=== PATIENT | male | born 1980 | race Caucasian/White ===

== ENCOUNTER 2022-12-16 18:55 | Emergency (ER) | payer OTHER, SELFPAY ==
[2022-12-16 19:01] VITALS: BP 166/88; PULSE 94; RESP 18; TEMP 36.6; O2SAT 98; BMI 30.8
--- NOTE | 2022-12-16 19:14 | PC.NURSE ---
Pain to right shoulder radiating down right arm, denies injury, no redness, selling or bruising noted.
--- NOTE | 2022-12-16 19:24 | XR_ITS ---
The [address] [address] Patient Name: DORIS VANCE MRN: [id number] date: 1980 Sex: M Assigned Patient Location: ER Current Patient Location: ER Accession/Order Number: [id number] Exam Date: 12/16/2022 19:35 Report Date: 12/16/2022 19:55 At the request of: BRIANA BLOCK Procedure: XR cervical spine 2-3V EXAM: XR cervical spine 2-3V HISTORY: right sided neck pain COMPARISON: 05/08/2019 TECHNIQUE: AP and lateral views of the cervical spine were obtained. FINDINGS: There is interval straightening and very slight reversal of the normal lordotic curvature. The vertebral bodies are aligned and the vertebral body heights are intact. There is narrowing of the C3-C4 on C5-C6 disc spaces accompanied by tiny osteophytes. The disc spaces are otherwise intact. No significant abnormality is seen in the vertebral bodies. Minimal degenerative changes are seen in the facets without evidence of a fracture or subluxation. The posterior elements are intact. The airway appears unremarkable. The patient is noted to be essentially edentulous. XR/XR cervical spine 2-3V IMPRESSION: There is interval development of straightening and slight reversal of the normal lordotic curvature in the cervical spine. Some degenerative changes are present, without evidence of an acute fracture. Except for the straightening, the overall appearance of the cervical spine is unchanged. Electronically authenticated by: DRE ANSARI Date: 12/16/2022 19:55
--- NOTE | 2022-12-16 19:24 | XR_ITS ---
The [address] [address] Patient Name: DORIS VANCE MRN: [id number] date: 1980 Sex: M Assigned Patient Location: ER Current Patient Location: ER Accession/Order Number: [id number] Exam Date: 12/16/2022 19:35 Report Date: 12/16/2022 19:50 At the request of: BRIANA BLOCK Procedure: XR shoulder RT min 2V EXAM: XR shoulder RT min 2V HISTORY: pain right shoulder COMPARISON: None. TECHNIQUE: 3 views of the right shoulder were obtained. FINDINGS: There is no evidence of an acute fracture or dislocation. The joint spaces are intact. The acromiohumeral interval is intact. No abnormal soft tissue calcifications are present. XR/XR shoulder RT min 2V IMPRESSION: No acute fracture, dislocation or significant degenerative change in the right shoulder. Direct comparison with a previous study may be helpful in determining the chronicity of these findings. Electronically authenticated by: DRE ANSARI Date: 12/16/2022 19:50
[2022-12-16 19:40] LABS: Basophils Percent Auto 0.3 % (0.2-2.0); Eosinophils Percent Auto 0.3 % (0.9-7.0); Hematocrit 50.2 % (42.0-54.0); Hemoglobin 17.4 g/dL (14.0-18.0); Immature Granulocytes Abs Auto 0.05 10^3/uL (0.00-0.03); Immature Granulocytes Pct Auto 0.4 % (0.0-0.5); Lymphocytes Absolute Auto 2.5 10^3/uL (1.2-3.8); Lymphocytes Percent Auto 21.5 % (20.5-60.0); Mean Corpuscular HGB Conc 34.7 g/dL (29.9-35.2); Mean Corpuscular Hemoglobin 30.7 pg (25.9-34.0); Mean Corpuscular Volume 88.5 fL (80.0-94.0); Mean Platelet Volume 10.5 fL (9.5-13.5); Monocytes Percent Auto 8.8 % (1.7-12.0); Neutrophils Absolute Auto 8.1 10^3/uL (1.4-6.5); Neutrophils Percent Auto 68.7 % (43.0-75.0); Platelet Count 206 10^3/uL (150-450); Red Blood Count 5.67 10^6/uL (4.70-6.10); Red Cell Distribution Width 12.5 % (11.0-15.0); White Blood Count 11.8 10^3/uL (4.0-11.0)
[2022-12-16 19:43] LABS: Erythrocyte Sedimentation Rate 4 mm/hr (<=15)
--- NOTE | 2022-12-16 19:47 | ED.UPPEXIN1 ---
HPI - Extremity Injury (Upper) General Chief Complaint: Extremity Injury, Upper Stated Complaint: Right Shoulder and Arm Pain Time Seen by Provider: 12/16/22 19:02 Source: patient Mode of arrival: walk-in History of Present Illness HPI narrative: patient is a 42-year-old male presents to the Emergency Room with concerns of pain in his right shoulder and right side of his neck. Patient denies injury, recently started new employment at [employer]. Denies any heavy lifting pushing or pulling. States he developed pain in the right side of his neck going into his right shoulder and right arm. He contacted his family doctor and was placed on prednisone yesterday, he has taken two doses and noted some improvement in the neck pain but pain is still severe in the right shoulder and does radiate down into the right thumb.He denies any pain in his chest or back. He denies any nausea or vomiting. Patient notes he did not sleep well. Symptoms started two days ago in the morning without trauma. He had previous pain management injections with [facility] over a year ago with good results. Patient takes gabapentin 300 mg three times a day but admits he has not taken it three times a day on a regular basis. He takes tizanidine at night for sleep given his chronic neck symptoms and is on a daily anti-inflammatory. Patient notes right shoulder pain is worse based on position but pain is always present. He is diabetic and has noted some warmth. Patient denies symptoms in his left sshoulder or other joints at this time. Hand dominance: right Place: Reports home Severity: severe Relieving factors: Reports none and medication (some improvement with prednisone with neck pain) Exacerbating factors: Reports movement of extremity Related Data Home Medications Medication Instructions Recorded Confirmed alprazolam 0.25 mg tablet 0.125 mg PO TID PRN anxiety 12/16/22 12/16/22 citalopram 40 mg tablet 40 mg PO DAILY 12/16/22 12/16/22 empagliflozin 10 mg tablet 10 mg PO DAILY 12/16/22 12/16/22 (Jardiance) gabapentin 600 mg tablet 600 mg PO Q12H 12/16/22 12/16/22 lamotrigine 100 mg tablet 200 mg PO DAILY 12/16/22 12/16/22 ondansetron 4 mg disintegrating mg 12/16/22 tablet rizatriptan 10 mg tablet 10 mg PO Q2H PRN migraine headache 12/16/22 12/16/22 tizanidine 4 mg tablet 4 mg PO Q12H 12/16/22 12/16/22 Allergies Allergy/AdvReac Type Severity Reaction Status Date / Time No Known Drug Allergies Allergy Verified 12/16/22 19:08 Review of Systems ROS Constitutional Reports: fever; Denies: chills Eyes Denies: change in vision Ears, nose, mouth, and throat Denies: throat pain or neck pain Cardiovascular Denies: chest pain or palpitations Respiratory Denies: shortness of breath or cough Gastrointestinal Denies: abdominal pain, nausea or vomiting Genitourinary Denies: painful urination Musculoskeletal Reports: neck pain and extremity pain (right shoulder) Integumentary/Breast Denies: rash Neurological Reports: numbness in extremities (occ. paresthesias right arm c6/ c5 distribution pain is C5 distribution); Denies: headache Psychiatric Denies: anxiety Endocrine Denies: excessive urination Hematologic/Lymphatic Denies: easy bruising Exam Narrative Exam Narrative: Nurses notes and vital signs reviewed and patient is not hypoxic. General: The patient appears uncomfortable, standing holding his right arm. Patient intermittently moving the right arm and states pain is bad holding it still and slightly changing position and moving it can offer some relief. Skin: Warm, dry, no pallor noted.no evidence of zoster-like rash. Head: Normocephalic, atraumatic Neck: Supple, trachea mid-line, no midline tenderness, no lymphadenopathy, no meningeal signs. mild tenderness right trapezium and right medial scapula. Patient notes the symptoms are improved with oral steroids. Eye: Pupils are equal, round and reactive to light, EOMI Ears, Nose, Mouth, and Throat: TM are clear, normal light reflex, oral mucosa is moist, no posterior oropharynx erythema or hypertrophy, uvula is mid-line Cardiovascular: Regular Rate and Rhythm Respiratory: Patient is in no distress, no accessory muscle use, lungs are clear to auscultation, no wheezing, rales or rhonchi. Chest Wall: no tenderness Back: non-tender, no CVA tenderness Musculoskeletal: patient has slight warmth to the right shoulder,mild ac joint pain. no erythema. Facial flushing likely from recent steroid prescription. Patient has near full range of motion despite pain past ninety degrees with abduction and forward flexion. Pain appears radiated over the deltoid into deltoid insertion folllowing a C5 dermatome. Does have positive increased pain with M?ni?re's in [place]. He has pain with rotator cuff stressing on empty can test. Patient notes pain with stressing his mildly increased from the pain he experiences at baseline. Internal rotation is to L4., Shoulders unremarkable. Patient has no evidence of joint swelling to the elbow wrist or hand. Full painless active and passive range of motion of the elbow wrist and hand appreciated. [employer] strength is full and symmetric. Wrist extension is five over five along with wrist flexion five over five. Biceps and triceps strength is also five over five. painless range of motion of the hips knees and ankles appreciated. GI: Normal bowel sounds, no tenderness to palpation, no masses appreciated. No rebound, guarding, or rigidity noted. Neurological: A&O x4, patient notes intermittent paresthesia right upper extremity C5-C6 distribution, currently expressing pain. Reflexes 2+ symmetric biceps, tricepps and brachial radialis. Negative clonus, negative Shaheed sign. Psychiatric: Cooperative Constitutional Vital Signs, click to edit/add: Last Vital Signs Temp 97.9 F 12/16/22 19:01 Pulse 67 12/16/22 20:10 Resp 18 12/16/22 20:10 BP 136/76 12/16/22 20:10 Pulse Ox 97 12/16/22 20:10 O2 Del Method Room Air 12/16/22 19:01 Course Vital Signs Vital signs: Vital Signs Temperature 97.9 F 12/16/22 19:01 Pulse Rate 94 H 12/16/22 19:01 Respiratory Rate 18 12/16/22 19:01 Blood Pressure 166/88 H 12/16/22 19:01 Pulse Oximetry 98 12/16/22 19:01 Oxygen Delivery Method Room Air 12/16/22 19:01 Temperature 97.9 F 12/16/22 19:01 Pulse Rate 67 12/16/22 20:10 Respiratory Rate 18 12/16/22 20:10 Blood Pressure 136/76 12/16/22 20:10 Pulse Oximetry 97 12/16/22 20:10 Oxygen Delivery Method Room Air 12/16/22 19:01 MDM - Extremity Injury (Upper) MDM Narrative Medical decision making narrative: patient appears to have acute exacerbation of right cervical radiculopathy. He denies any aggressive use of his shoulder but did recently start new employment. Patient has significant pain constant and a C5 almost C6 dermatome. There is no focal weakness no reflex abnormality. And he is starting to some improvement in his neck pain with oral prednisone. We discussed watching his diet as he is diabetic and the steroids may raise his blood sugar. Patient will start taking his gabapentin three times a day as prescribed 300 mg. We discussed contacting pain management on Monday from whom he is established with discussed possible procedures. X-rays were performed today after discussion with the patient that he would not like to delay any other outpatient follow-up needs encase additional imaging is warranted later on. X-rays of the right shoulder and cervical spine were discussed at bedside. Given slight warmth and patient's history of diabetes sedimentation rate and CRP are performed, within normal limits suspect slight elevation of white blood cell count from patient's pain and recent steroid use, patient denies any IV drug abuse fevers or chills. We discussed pain expectations with IM Toradol, Norflex and morphine given here today. Recommend patient continue his current medications focused on ice and activity modifications with gentle neck stretching pending follow-up outpatient we did discuss patient's severe pain. Diabetic by infectious process appears less likely. Laboratory studies performed with normaal sedimentation rate and CRP and autoimmune process not suspected. His clinical picture strongly suggestive of cervical radiculopathy given exam findings.patient spouse present at bedside, patient notes continued pain despite IM medications. He is requesting a IM steroid we discussed risks and benefits with his sugars, he did not take his steroid yet today and has been taking them before bed but has no difficulty sleeping. We discussed watching his diet and his x-rays, laboratory studies and need for follow-up are discussed. Patient noted that he was thankful for evaluation and tx. The patient is to followup with Dr. Johansen/Dr. Quinonez in next 2-3 days or to return to the emergency department should any of the signs or symptoms worsen or new symptoms develop. Patient had questions answered. The patient agrees with the following Diagnosis and Treatment plan and the patient will be discharged home. Lab Data Labs: Lab Results 12/16/22 Range/Units 19:34 WBC 11.8 H (4.0-11.0) 10^3/uL RBC 5.67 (4.70-6.10) 10^6/uL Hgb 17.4 (14.0-18.0) g/dL Hct 50.2 (42.0-54.0) % MCV 88.5 (80.0-94.0) fL MCH 30.7 (25.9-34.0) pg MCHC 34.7 (29.9-35.2) g/dL RDW 12.5 (11.0-15.0) % Plt Count 206 (150-450) 10^3/uL MPV 10.5 (9.5-13.5) fL Neut % (Auto) 68.7 (43.0-75.0) % Lymph % (Auto) 21.5 (20.5-60.0) % [place] % (Auto) 8.8 (1.7-12.0) % Eos % (Auto) 0.3 L (0.9-7.0) % Baso % (Auto) 0.3 (0.2-2.0) % Neut # (Auto) 8.1 H (1.4-6.5) 10^3/uL Lymph # (Auto) 2.5 (1.2-3.8) 10^3/uL [place] # (Auto) 1.0 H (0.3-0.8) 10^3/uL Eos # (Auto) 0.0 (0.0-0.7) 10^3/uL Baso # (Auto) 0.0 (0.0-0.1) 10^3/uL Abs Immat Gran (auto) 0.05 H (0.00-0.03) 10^3/uL Imm/Tot Granulo (auto) 0.4 (0.0-0.5) % ESR 4 (<=15) mm/hr Sodium 137 (136-145) mmol/L Potassium 3.3 L (3.5-5.1) mmol/L Chloride 97 L (98-107) mmol/L Carbon Dioxide 31.8 (21.0-32.0) mmol/L Anion Gap 11.5 BUN 20.0 H (7.0-18.0) mg/dL Creatinine 1.26 (0.70-1.30) mg/dL Est GFR ( Amer) >60 (>=60) Est GFR (Non-Af Amer) >60 (>=60) BUN/Creatinine Ratio 15.9 Glucose 149 H (74-106) mg/dL Calcium 9.3 (8.5-10.1) mg/dL Troponin I High Sens 16.1 (4.0-76.1) pg/mL C-Reactive Protein <1.0 (<=1.0) mg/dL Imaging Data c-spine: Radiologist's impression: Procedure: XR cervical spine 2-3V EXAM: XR cervical spine 2-3V HISTORY: right sided neck pain COMPARISON: 05/08/2019 TECHNIQUE: AP and lateral views of the cervical spine were obtained. FINDINGS: There is interval straightening and very slight reversal of the normal lordotic curvature. The vertebral bodies are aligned and the vertebral body heights are intact. There is narrowing of the C3-C4 on C5-C6 disc spaces accompanied by tiny osteophytes. The disc spaces are otherwise intact. No significant abnormality is seen in the vertebral bodies. Minimal degenerative changes are seen in the facets without evidence of a fracture or subluxation. The posterior elements are intact. The airway appears unremarkable. The patient is noted to be essentially edentulous. IMPRESSION: There is interval development of straightening and slight reversal of the normal lordotic curvature in the cervical spine. Some degenerative changes are present, without evidence of an acute fracture. Except for the straightening, the overall appearance of the cervical spine is unchanged. right shoulder xray: My impression: personally reviewed, no acute fracture, no significant degenerative changes. Radiologist's impression: EXAM: XR shoulder RT min 2V HISTORY: pain right shoulder COMPARISON: None. TECHNIQUE: 3 views of the right shoulder were obtained. FINDINGS: There is no evidence of an acute fracture or dislocation. The joint spaces are intact. The acromiohumeral interval is intact. No abnormal soft tissue calcifications are present. IMPRESSION: No acute fracture, dislocation or significant degenerative change in the right shoulder. Direct comparison with a previous study may be helpful in determining the chronicity of these findings. Electronically authenticated by: DRE ANSARI Date: 12/16/2022 19:50 ECG Data Attestation: I personally reviewed and interpreted this ECG as follows: Interpretation: EKG interpretation: Emergency Department physician interpretation, normal sinus rhythm 76 bpm, no ectopy, no ST segment elevation, normal axis ( border line right axis deviation). Discharge Plan Discharge Chief Complaint: Extremity Injury, Upper Clinical Impression: Cervical radiculopathy, Acute pain of right shoulder Patient Disposition: Home, Self-Care Time of Disposition Decision: 20:09 Condition: Good Mode of Transportation: Private Vehicle Prescriptions / Home Meds: No Action alprazolam 0.25 mg tablet 0.125 mg PO TID PRN (Reason: anxiety) citalopram 40 mg tablet 40 mg PO DAILY Jardiance 10 mg tablet 10 mg PO DAILY Rx Instructions: takes 5 mg daily gabapentin 600 mg tablet 600 mg PO Q12H lamotrigine 100 mg tablet 200 mg PO DAILY rizatriptan 10 mg tablet 10 mg PO Q2H PRN (Reason: migraine headache) ondansetron 4 mg tablet,disintegrating tizanidine 4 mg tablet 4 mg PO Q12H Instructions: Cervical Radiculopathy (ED), Shoulder Pain (ED) Additional Instructions: Gentle stretching. Do not recommend sling, could lead to Frozen shoulder... call pain management to Discuss possible repeat injections, but with pain in Shoulder follow up to Dr. Mijares warranted for further eval. please take current steroid as prescribed by Dr. Johansen with use of ice. Cont current medications. Include potassium rich foods in your diet. Stand Alone Forms: Portal Instructions Referrals: Roni Johansen MD [Primary Care Provider] - 1 week Chadwick Mijares MD [Physician] - As soon as possible ROLANDO QUINONEZ [Physician] - As soon as possible Discharge Date/Time: 12/16/22 20:56
--- NOTE | 2022-12-16 19:50 | ECG_ITS ---
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
[2022-12-16 19:51] LABS: Anion Gap 11.5; BUN Creatinine Ratio 15.9; Calcium 9.3 mg/dL (8.5-10.1); Carbon Dioxide 31.8 mmol/L (21.0-32.0); Chloride 97 mmol/L (98-107); Estimated GFR (African America >60 (>=60); Estimated GFR (Non-African Ame >60 (>=60); Glucose 149 mg/dL (74-106); Potassium 3.3 mmol/L (3.5-5.1); Sodium 137 mmol/L (136-145)
[2022-12-16 19:53] LABS: C Reactive Protein <1.0 mg/dL (<=1.0)
[2022-12-16] MEDS: KETOROLAC TROMETHAMINE 60 MG/2 ML VIAL IM (19:59)
[2022-12-16] MEDS: ORPHENADRINE 60 MG/ 2 ML VIAL IM (20:00)
[2022-12-16] MEDS: MORPHINE SULFATE 4 MG/ML VIAL 6 MG IM (20:00)
[2022-12-16 20:10] VITALS: BP 136/76; PULSE 67; RESP 18; O2SAT 97
[2022-12-16 20:19] LABS: Troponin I High Sensitivity 16.1 pg/mL (4.0-76.1)
[2022-12-16] MEDS: METHYLPREDNISOLONE SOD SUCC PF 125 MG/2 ML VIAL IM (20:42)
== END 2022-12-16 20:56 | disposition home or self-care (01) ==
PROVIDERS: Personal Emergency Response Attendant; Emergency Provider Internal Medicine; PCP Family Medicine
DX: M54.12 Radiculopathy, cervical region (principal); M25.511 Pain in right shoulder; E11.9 Type 2 diabetes mellitus without complications; Z79.899 Other long term (current) drug therapy
CPT/HCPCS: 36415; 72040; 73030; 80048; 84484; 85025; 85652; 86140; 93005; 96372; 99285; J2930

== ENCOUNTER 2023-01-09 08:37 | Outpatient (OUT) | payer OTHER, SELFPAY ==
--- NOTE | 2023-01-09 08:42 | MR_ITS ---
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 FINDINGS: The sensitivity of the study has been decreased due to motion artifact. There is normal physiologic cervical lordosis. The vertebral heights are relatively preserved. The cervicomedullary junction is unremarkable. No definite signal abnormality within the spinal cord is noted, given the limitation of motion artifact. There are mild disc osteophyte complex associated with uncovertebral joint arthrosis from C3 to T1. There is bilateral short pedicles predisposing patient to canal stenosis. Mild right neuroforaminal narrowing and no canal stenosis at the level of C2-C3 is noted. At the level of C3-C4, there is severe right and moderate left neuroforaminal narrowing and mild canal stenosis. At the level of C4-C5, there is superimposed central protrusion with moderate right and mild left neuroforaminal narrowing and moderate canal stenosis. At the level of C5-C6, there is moderate bilateral neuroforaminal narrowing and mild canal stenosis. At the level of C6-C7, there is mild to moderate bilateral neuroforaminal narrowing and mild canal stenosis. Level of C7-T1, there is moderate right neuroforaminal narrowing. No canal stenosis. At the level of T1-T2 there is central and left lateral disc protrusion with mild canal stenosis and no neuroforaminal narrowing. No definite muscular or ligamentous injury is noted. MR/MR cervical spine wo con IMPRESSION: Moderate degenerative changes of the cervical spine in particular at C3-C4. Electronically authenticated by: TIBURCIO MERRITT Date: 01/09/2023 11:02
--- NOTE | 2023-01-09 08:46 | XR_ITS ---
The [address] [address] Patient Name: DORIS VANCE MRN: [id number] date: 1980 Sex: M Assigned Patient Location: MRI Current Patient Location: MRI Accession/Order Number: [id number] Exam Date: 01/09/2023 08:51 Report Date: 01/09/2023 09:24 At the request of: ALFREDO RODRIGUEZ Procedure: XR foreign body eye EXAM: XR foreign body eye HISTORY: Possible foreign body. COMPARISON: None FINDINGS: No radiopaque foreign body is seen. No evidence of an acute fracture, subluxation or bony destruction is seen. XR/XR foreign body eye IMPRESSION: No radiopaque foreign body. Electronically authenticated by: ALBINA LÓPEZ Date: 01/09/2023 09:24
--- OUTSIDE RECORDS SUMMARY | 2023-02-14 18:42 | XMS_ITS | CCD ---
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 Name Role Phone Physician, No Pcp Primary Care Provider Unavaila ble PHYSICIAN, NO PCP Primary Care Unavailable JENNIFER ., DR FUENTES Primary Care Unavailable HOY ., DR FUENTES Admitting Unavailable HOY ., DR FUENTES Attending Unavailable HOY ., DR FUENTES Consulting Unavailable HOY ., DR FUENTES Admitting Unavailable HOY ., DR FUENTES Attending Unavailable HOY ., DR FUENTES Consulting Unavailable HOY ., DR FUENTES Primary Care Unavailable Medications Completed/Discontinued Medications Medication Drug Class(es) Dates Sig (Normalized) Sig (Original) 1 ml ketorolac tromethamine 30 mg/ml injection (1 source) Nonsteroidal Anti-inflammatory Drug, Cyclooxygenase Inhibitor Start: 01-08-2022 End: 01-08-2022 ketorolac (TORADOL) injection 15 mg 2 ml ondansetron 2 mg/ml injection (1 source) Serotonin-3 Receptor Antagonist Start: 01-08-2022 End: 01-08-2022 ondansetron (PF) (ZOFRAN) injection 4 mg 1000 ml sodium chloride 9 mg/ml injection (1 source) Start: 01-08-2022 End: 01-08-2022 sodium chloride 0.9 % bolus 1,000 mL Problems Problem Classification Problem Date Documented Da te Episodic/Chronic Nausea and vomiting (2 sources) Nausea and vomiting; Translations: [Nausea with vomiting, unspecified] Onset: 01-08-2022 Episodic Other gastrointestinal disorders (1 source) Diarrhea; Translations: [Diarrhea, unspecified] Episodic Other gastrointestinal disorders (1 source) Diarrhea, unspecified; Translations: [Diarrhea, unspecified] Onset: 01-08-2022 Episodic Results Test Name Value Interpretation Reference Range Facil ity CBC AUTO DIFFon 07-01-2022 BASO # 0.0 103/ul Normal 0.0-0.1 [facility] Comment on above: Performed By: #### C BC #### [facility] [address] [place] [address] Dr. Tristan Cole Basophils/100 WBC (Bld) 0.7 % Normal 0.2-2.0 [facility] Comment on above: Performed By: #### C BC #### [facility] [address] [place] [address] Dr. Tristan Cole EO # 0.1 103/ul Normal 0.0-0.7 [facility] Comment on above: Performed By: #### C BC #### [facility] [address] [place] [address] Dr. Tristan Cole Eosinophils/100 WBC (Bld) 2.6 % Normal 0.9-7.0 [facility] Comment on above: Performed By: #### C BC #### [facility] [address] [place] [address] Dr. Tristan Cole Erythrocyte distribution wid th (RBC) [Ratio] 12.5 % Normal 11.0-15.0 [facility] Comment on above: Performed By: #### C BC #### [facility] [address] [place] [address] Dr. Tristan Cole Hematocrit (Bld) [Volume fraction] 51.2 % Normal 4 2.0-54.0 [facility] Comment on above: Performed By: #### C BC #### [facility] [address] [place] [address] Dr. Tristan Cole Hemoglobin (Bld) [Mass/Vol] 17.7 g/dL Normal 14.0-18. 0 [facility] Comment on above: Performed By: #### C BC #### [facility] [address] [place] [address] Dr. Tristan Cole IG # 0.02 10e3/ul Normal 0.00-0.03 [facility] Comment on above: Performed By: #### C BC #### [facility] [address] [place] [address] Dr. Tristan Cole IG % 0.4 % Normal 0.0-0.5 The [facility] Comment on above: Performed By: #### C BC #### [facility] [address] [place] [address] Dr. Tristan Cole LYMPH # 1.6 103/ul Normal 1.2-3.8 The [facility] Comment on above: Performed By: #### C BC #### [facility] [address] [place] [address] Dr. Tristan Cole Lymphocytes/100 WBC (Bld) 35.8 % Normal 20.5-60.0 [facility] Comment on above: Performed By: #### C BC #### [facility] [address] [place] [address] Dr. Tristan Cole MANUAL DIFF REQ NO Normal [facility] Comment on above: Performed By: #### C BC #### [facility] [address] [place] [address] Dr. Tristan Cole MCH (RBC) [Entitic mass] 30.4 pg Normal 25.9-34.0 [facility] Comment on above: Performed By: #### C BC #### [facility] [address] [place] [address] Dr. Tristan Cole MCHC (RBC) [Mass/Vol] 34.6 g/dL Normal 29.9-35.2 [facility] Comment on above: Performed By: #### C BC #### [facility] [address] [place] [address] Dr. Tristan Cole MCV (RBC) [Entitic vol] 87.8 fL Normal 80.0-94.0 [facility] Comment on above: Performed By: #### C BC #### [facility] [address] [place] [address] Dr. Tristan Cole MONO # 0.4 103/ul Normal 0.3-0.8 The [facility] Comment on above: Performed By: #### C BC #### [facility] [address] [place] [address] Dr. Tristan Cole Monocytes/100 WBC (Bld) 9.6 % Normal 1.7-12.0 [facility] Comment on above: Performed By: #### C BC #### [facility] [address] [address] [address] Tristan Cole NEUT # 2.3 103/ul Normal 1.4-6.5 The [facility] Comment on above: Performed By: #### C BC #### [facility] [address] [address] [address] Tristan Cole Neutrophils/100 WBC (Bld) 50.9 % Normal 43.0-75.0 [facility] Comment on above: Performed By: #### C BC #### [facility] [address] [place] [address] Dr. Tristan Cole Platelet mean volume (Bld) [ Entitic vol] 11.2 fL Normal 9.5-13.5 The [facility] Comment on above: Performed By: #### C BC #### [facility] [address] [place] [address] Dr. Tristan Cole PLT 173 103/ul Normal 150-450 The [facility] Comment on above: Performed By: #### C BC #### [facility] [address] [place] [address] Dr. Tristan Cole RBC 5.83 106/ul Normal 4.70-6.10 [facility] Comment on above: Performed By: #### C BC #### [facility] [address] [address] [address] Tristan Cole WBC 4.6 103/ul Normal 4.0-11.0 The [facility] Comment on above: Performed By: #### C BC #### [facility] [address] [place] [address] Dr. Tristan Cole LIPID PROFILEon 07-01-2022 CHOL-HDL RATIO NORM SEE BELOW Normal The [facility] Comment on above: Result Comment: 3.3 - 4.4 LOW RISK 4.4 - 7.1 AVERAGE RISK 7.1 - 11.0 MODERATE RISK >11.0 HIGH RISK Performed By: #### L IPID, CMP, T4, TSH #### [facility] [address] [address] [address] Tristan Cole Cholesterol [Mass/Vol] 217 mg/dL Critically high <=200 [facility] Comment on above: Performed By: #### L IPID, CMP, T4, TSH #### [facility] [address] [address] [address] Tristan Cole Cholesterol in HDL [Mass/Vol] 41 mg/dL Normal 40-60 [facility] Comment on above: Performed By: #### L IPID, CMP, T4, TSH #### [facility] [address] [address] [address] Tristan Cole Cholesterol in LDL [Mass/Vol] 117.0 mg/dL Normal [facility] Comment on above: Performed By: #### L IPID, CMP, T4, TSH #### [facility] [address] [address] [address] Tristan Cole Cholesterol.total/Cholestero l in HDL [Mass ratio] 5.3 {ratio} Normal [facility] Comment on above: Performed By: #### L IPID, CMP, T4, TSH #### [facility] [address] [address] [address] Tristan Cole HDL NORMAL > or = 60 mg/dl - LO W CARDIOVASCULAR RISK <40 mg/dl - HIGH CARDIOVASCULAR RISK Normal [facility] Comment on above: Performed By: #### L IPID, CMP, T4, TSH #### [facility] [address] [address] [address] Tristan Cole LDL CALC NORMAL SEE BELOW Normal The [facility] Comment on above: Result Comment: <100 mg/dl OPTIMAL 100 - 129 mg/dl NEAR OR ABOVE OPTIMAL 130 - 159 mg/dl BORDERLINE HIGH 160 - 189 mg/dl HIGH >190 mg/dl VERY HIGH Performed By: #### L IPID, CMP, T4, TSH #### [facility] [address] [address] [address] Tristan Cole Triglyceride [Mass/Vol] 295 mg/dL Critically high <=150 [facility] Comment on above: Performed By: #### L IPID, CMP, T4, TSH #### [facility] [address] [address] [address] Tristan Cole VLDL CALC 59.0 mg/dL Normal [facility] Comment on above: Performed By: #### L IPID, CMP, T4, TSH #### [facility] [address] [address] [address] Tristan Cole PROF 14(COMP METB)on 023 Albumin [Mass/Vol] 3.9 g/dL Normal 3.4-5.0 [facility] Comment on above: Performed By: #### L IPID, CMP, T4, TSH #### [facility] [address] [place] [address] Dr. Tristan Cole Albumin/Globulin [Mass ratio] 1.1 {ratio} Normal [facility] Comment on above: Performed By: #### L IPID, CMP, T4, TSH #### [facility] [address] [place] [address] Dr. Tristan Cole ALP [Catalytic activity/Vol] 75 U/L Normal 46-116 [facility] Comment on above: Performed By: #### L IPID, CMP, T4, TSH #### [facility] [address] [place] [address] Dr. Tristan Cole ALT [Catalytic activity/Vol] 45 U/L Normal 16-63 [facility] Comment on above: Performed By: #### L IPID, CMP, T4, TSH #### [facility] [address] [place] [address] Dr. Tristan Cole Anion gap [Moles/Vol] 10.3 mmol/L Normal [facility] Comment on above: Performed By: #### L IPID, CMP, T4, TSH #### [facility] [address] [place] [address] Dr. Tristan Cole AST [Catalytic activity/Vol] 28 U/L Normal 15-37 [facility] Comment on above: Performed By: #### L IPID, CMP, T4, TSH #### [facility] [address] [address] [address] Tristan Cole Bilirubin [Mass/Vol] 1.0 mg/dL Normal 0.2-1.0 [facility] Comment on above: Performed By: #### L IPID, CMP, T4, TSH #### [facility] [address] [place] [address] Dr. Tristan Cole Calcium [Mass/Vol] 8.9 mg/dL Normal 8.5-10.1 [facility] Comment on above: Performed By: #### L IPID, CMP, T4, TSH #### [facility] [address] [place] [address] Dr. Tristan Cole Chloride [Moles/Vol] 103 mmol/L Normal 98-107 [facility] Comment on above: Performed By: #### L IPID, CMP, T4, TSH #### [facility] [address] [place] [address] Dr. Tristan Cole CO2 [Moles/Vol] 29.9 mmol/L Normal 21.0-32.0 [facility] Comment on above: Performed By: #### L IPID, CMP, T4, TSH #### [facility] [address] [place] [address] Dr. Tristan Cole Creatinine [Mass/Vol] 0.99 mg/dL Normal 0.70-1.30 [facility] Comment on above: Performed By: #### L IPID, CMP, T4, TSH #### [facility] [address] [place] [address] Dr. Tristan Cole EGFR-AF BAHAMIAN >60 Normal >=60 The [facility] Comment on above: Performed By: #### L IPID, CMP, T4, TSH #### [facility] [address] [place] [address] Dr. Tristan Cole EGFR-NON AF BAHAMIAN >60 Normal >=60 [facility] Comment on above: Performed By: #### L IPID, CMP, T4, TSH #### [facility] [address] [place] [address] Dr. Tristan Cole Globulin (S) [Mass/Vol] 3.5 g/dL Normal [facility] Comment on above: Performed By: #### L IPID, CMP, T4, TSH #### [facility] [address] [address] [address] Tristan Cole Glucose [Mass/Vol] 121 mg/dL Critically high 74-106 [facility] Comment on above: Performed By: #### L IPID, CMP, T4, TSH #### [facility] [address] [address] [address] Tristan Cole Potassium [Moles/Vol] 4.2 mmol/L Normal 3.5-5.1 [facility] Comment on above: Performed By: #### L IPID, CMP, T4, TSH #### [facility] [address] [place] [address] Dr. Tristan Cole Protein [Mass/Vol] 7.4 g/dL Normal 6.4-8.2 [facility] Comment on above: Performed By: #### L IPID, CMP, T4, TSH #### [facility] [address] [place] [address] Dr. Tristan Cole Sodium [Moles/Vol] 139 mmol/L Normal 136-145 [facility] Comment on above: Performed By: #### L IPID, CMP, T4, TSH #### [facility] [address] [place] [address] Dr. Tristan Cole Urea nitrogen [Mass/Vol] 10.0 mg/dL Normal 7.0-18.0 [facility] Comment on above: Performed By: #### L IPID, CMP, T4, TSH #### [facility] [address] [place] [address] Dr. Tristan Cole Urea nitrogen/Creatinine [Mass ratio] 10.1 mg/mg Normal [facility] Comment on above: Performed By: #### L IPID, CMP, T4, TSH #### [facility] [address] [place] [address] Dr. Tristan Cole T4on 07-01-2022 T4 [Mass/Vol] 7.00 ug/dL Normal 4.50-12.10 [facility] Comment on above: Performed By: #### L IPID, CMP, T4, TSH #### [facility] [address] [place], [place] [address] Dr. Tristan Cole TSHon 07-01-2022 TSH 1.293 uIU/mL Normal 0.358-3.740 [facility] Comment on above: Performed By: #### L IPID, CMP, T4, TSH #### [facility] [address] [place], [place] [address] Dr. Tristan Cole Basic metabolic 2000 panelon 01-08-2022 Lipase [Catalytic activity/Vol] 59 U/L Normal 11-8 2 [facility] Comment on above: Performed By: #### 2 4321-2 #### [facility] [address] [place] [address] Anion gap [Moles/Vol] 9 mmol/L 6 - 18 [facility] Calcium [Mass/Vol] 9.4 mg/dL 8.9 - 10.3 mg/dL [facility] Chloride [Moles/Vol] 105 mmol/L 98 - 107 mmol/L [facility] CO2 [Moles/Vol] 25 mmol/L 22 - 32 mmol/L [facility] Creatinine [Mass/Vol] 0.89 mg/dL 0.60 - 1.30 mg /dL [facility] GFR/1.73 sq M.predicted MDRD (S/P/Bld) [Vol rate/Area] 110 mL/min/{1.73_m2} - [facility] Comment on above: Effective December 05, 2021, calculation based on the Chronic Kidney Disease Epidemiology Collaboration (CKD-EPI) equation refit without adjustment for race. Glucose [Mass/Vol] 151 mg/dL High 70 - 99 mg/dL [facility] Interpretation and review of laboratory results Abnormal [facility] h Potassium [Moles/Vol] 4.1 mmol/L 3.6 - 5.1 mmol /L [facility] Sodium [Moles/Vol] 139 mmol/L 136 - 145 mmol/L [facility] Urea nitrogen [Mass/Vol] 15 mg/dL 8 - 20 mg/d L [facility] Urea nitrogen/Creatinine [Mass ratio] 16.9 mg/mg 12.0 - 20.0 [facility] Hemogram and platelets WO di fferential panel (Bld)on 01-08-2022 Basophils (Bld) [#/Vol] 0.02 10*3/uL Normal 0.00-0.20 [facility] Comment on above: Performed By: #### 2 4317-0 #### [facility] [address] [place] [address] [place] [address] Basophils/100 WBC (Bld) 0.3 % Normal 0.0-2.0 [facility] Comment on above: Performed By: #### 2 4317-0 #### [facility] [address] [place] [address] [place] [address] Eosinophils (Bld) [#/Vol] 0.03 10*3/uL Normal 0.00-0.7 0 [facility] Comment on above: Performed By: #### 2 4317-0 #### [facility] [address] [place] [address] [place] [address] Eosinophils/100 WBC (Bld) 0.5 % Normal 0.0-7.0 [facility] Comment on above: Performed By: #### 2 4317-0 #### [facility] [address] [place] [address] [place] [address] Erythrocyte distribution wid th (RBC) [Ratio] 11.8 % Normal 11.0-14.8 [facility] Comment on above: Performed By: #### 2 4317-0 #### [facility] [address] [place] [address] [place] [address] Hematocrit (Bld) [Volume fraction] 49.6 % High 3 9.0-49.0 [facility] Comment on above: Performed By: #### 2 4317-0 #### [facility] [address] [place] [address] [place] [address] Hemoglobin (Bld) [Mass/Vol] 17.8 g/dL High 13.5-17. 5 [facility] Comment on above: Performed By: #### 2 4317-0 #### [facility] [place] [address] Immature granulocytes (Bld) [#/Vol] 0.03 10*3/uL Normal 0.00-0.10 [facility] Comment on above: Performed By: #### 2 4317-0 #### [facility] [place] [address] Immature granulocytes/100 WBC (Bld) 0.5 % Normal 0.0-1.2 [facility] Comment on above: Performed By: #### 2 4317-0 #### [facility] [address] [place] [address] Lymphocytes (Bld) [#/Vol] 1.01 10*3/uL Normal 1.00-4.8 0 [facility] Comment on above: Performed By: #### 2 4317-0 #### [facility] [address] [place] [address] [place] [address] Lymphocytes/100 WBC (Bld) 15.6 % Low 17.9-49.6 [facility] Comment on above: Performed By: #### 2 4317-0 #### [facility] [address] [place], [place] [address] [address] MCH 30.9 pcg Normal 27.0-34.0 [facility] Comment on above: Performed By: #### 2 4317-0 #### [facility] [address] [place] [address] [place] [address] MCHC (RBC) [Mass/Vol] 35.9 g/dL High 30.8-35.[address] [facility] Comment on above: Performed By: #### 2 4317-0 #### [facility] [address] [place] [address] [place] [address] MCV (RBC) [Entitic vol] 86.1 fL Normal 80.0-97.0 [facility] Comment on above: Performed By: #### 2 4317-0 #### [facility] [place] [address] Monocytes (Bld) [#/Vol] 0.36 10*3/uL Normal 0.00-0.90 [facility] Comment on above: Performed By: #### 2 4317-0 #### [facility] [address] [place] [address] [place] [address] Monocytes/100 WBC (Bld) 5.5 % Normal 0.0-12.0 [facility] Comment on above: Performed By: #### 2 4317-0 #### [facility] [address] [place] [address] [place] [address] Neutrophils Absolute 5.04 K/mcL Normal 1.80-7.70 [facility] Comment on above: Performed By: #### 2 4317-0 #### [facility] [address] [place] [address] [place] [address] Neutrophils/100 WBC (Bld) 77.6 % High 38.1-75.5 [facility] Comment on above: Performed By: #### 2 4317-0 #### [facility] [address] [place] [address] [place] [address] Platelet mean volume (Bld) [ Entitic vol] 11.3 fL Normal 6.2-12.1 [facility] Comment on above: Performed By: #### 2 4317-0 #### [facility] [address] [place], [place] [address], [place] [address] Platelets (Bld) [#/Vol] 172 10*3/uL Normal 142-424 [facility] Comment on above: Performed By: #### 2 4317-0 #### [facility] [address] [place] [address] RBC (Bld) [#/Vol] 5.76 10*6/uL High 4.30-5.70 [facility] Comment on above: Performed By: #### 2 4317-0 #### [facility] [place] [place] [address] WBC (Bld) [#/Vol] 6.5 10*3/uL Normal 4.6-10.2 [facility] Comment on above: Performed By: #### 2 4317-0 #### [facility] [place] [address] Basophils (Bld) [#/Vol] 0.02 10*3/uL [facility] Basophils/100 WBC (Bld) 0.3 % 0.0 - 2.0 % [facility] Eosinophils (Bld) [#/Vol] 0.03 10*3/uL [facility] Eosinophils/100 WBC (Bld) 0.5 % 0.0 - 7.0 % [facility] Erythrocyte distribution wid th (RBC) [Ratio] 11.8 % 11.0 - 14.8 % [facility] Hematocrit (Bld) [Volume fraction] 49.6 % High 3 9.0 - 49.0 % [facility] Hemoglobin (Bld) [Mass/Vol] 17.8 g/dL High 13.5 - 1 7.5 g/dL [facility] Immature granulocytes (Bld) [#/Vol] 0.03 10*3/uL [facility] Immature granulocytes/100 WBC (Bld) 0.5 % 0.0 - 1.2 % [facility] Interpretation and review of laboratory results Abnormal [facility] Lymphocytes (Bld) [#/Vol] 1.01 10*3/uL [facility] Lymphocytes/100 WBC (Bld) 15.6 % Low 17.9 - 49. 6 % [facility] MCH (RBC) [Entitic mass] 30.9 pg [facility] MCHC (RBC) [Mass/Vol] 35.9 g/dL High 30.8 - 35.3 g/ dL [facility] MCV (RBC) [Entitic vol] 86.1 fL [facility] Monocytes (Bld) [#/Vol] 0.36 10*3/uL [facility] Monocytes/100 WBC (Bld) 5.5 % 0.0 - 12.0 % [facility] Neutrophils (Bld) [#/Vol] 5.04 10*3/uL [facility] Neutrophils/100 WBC (Bld) 77.6 % High 38.1 - 75. 5 % [facility] Platelet mean volume (Bld) [ Entitic vol] 11.3 fL [facility] Platelets (Bld) [#/Vol] 172 10*3/uL [facility] RBC (Bld) [#/Vol] 5.76 10*6/uL High [facility] WBC (Bld) [#/Vol] 6.5 10*3/uL [facility] Hepatic function 2000 panelo n 01-08-2022 Albumin [Mass/Vol] 4.8 g/dL 3.5 - 4.8 g/dL [facility] ALP [Catalytic activity/Vol] 67 U/L [facility] ALT [Catalytic activity/Vol] 36 U/L [facility] AST [Catalytic activity/Vol] 25 U/L [facility] Bilirubin [Mass/Vol] 0.7 mg/dL 0.3 - 1.2 mg/dL [facility] Bilirubin.direct [Mass/Vol] 0.1 mg/dL NINF - 0 .5 mg/dL [facility] Bilirubin.indirect [Mass/Vol] 0.6 mg/dL 0.0 - 1.0 mg/dL [facility] Protein [Mass/Vol] 7.1 g/dL 6.1 - 7.9 g/dL [facility] - Specimen inform ationon 01-08-2022 Specimen source Nom (Unsp spec) Hold for add-ons. [facility] Comment on above: Auto resulted. Lipaseon 01-08-2022 Lipase [Catalytic activity/Vol] 59 U/L [facility] No Panel Informationon 01-08 [facility] Interpretation and review of laboratory results Normal [facility] CBC AUTO DIFFon 07-06-2021 BASO # 0.0 103/ul Normal 0.0-0.1 [facility] Comment on above: Performed By: #### C MP, TSH, LIPID, T4 #### [facility] [address] [place] [address] Dr. Tristan Cole Basophils/100 WBC (Bld) 0.5 % Normal 0.2-2.0 [facility] Comment on above: Performed By: #### C MP, TSH, LIPID, T4 #### [facility] [address] [place] [address] Dr. Tristan Cole EO # 0.1 103/ul Normal 0.0-0.7 [facility] Comment on above: Performed By: #### C MP, TSH, LIPID, T4 #### [facility] [address] [place] [address] Dr. Tristan Cole Eosinophils/100 WBC (Bld) 1.5 % Normal 0.9-7.0 [facility] Comment on above: Performed By: #### C MP, TSH, LIPID, T4 #### [facility] [address] [place] [address] Dr. Tristan Cole Erythrocyte distribution wid th (RBC) [Ratio] 12.1 % Normal 11.0-15.0 [facility] Comment on above: Performed By: #### C MP, TSH, LIPID, T4 #### [facility] [address] [place] [address] Dr. Tristan Cole Hematocrit (Bld) [Volume fraction] 50.8 % Normal 4 2.0-54.0 [facility] Comment on above: Performed By: #### C MP, TSH, LIPID, T4 #### [facility] [address] [place] [address] Dr. Tristan Cole Hemoglobin (Bld) [Mass/Vol] 17.3 g/dL Normal 14.0-18. 0 [facility] Comment on above: Performed By: #### C MP, TSH, LIPID, T4 #### [facility] [address] [place] [address] Dr. Tristan Cole IG # 0.03 10e3/ul Normal 0.00-0.03 [facility] Comment on above: Performed By: #### C MP, TSH, LIPID, T4 #### [facility] [address] [address] [address] Tristan Cole IG % 0.5 % Normal 0.0-0.5 [facility] Comment on above: Performed By: #### C MP, TSH, LIPID, T4 #### [facility] [address] [place] [address] Dr. Tristan Cole LYMPH # 2.2 103/ul Normal 1.2-3.8 [facility] Comment on above: Performed By: #### C MP, TSH, LIPID, T4 #### [facility] [address] [place] [address] Dr. Tristan Cole Lymphocytes/100 WBC (Bld) 37.0 % Normal 20.5-60.0 [facility] Comment on above: Performed By: #### C MP, TSH, LIPID, T4 #### [facility] [address] [place] [address] Dr. Tristan Cole MANUAL DIFF REQ NO Normal [facility] Comment on above: Performed By: #### C MP, TSH, LIPID, T4 #### [facility] [address] [place] [address] Dr. Tristan Cole MCH (RBC) [Entitic mass] 30.8 pg Normal 25.9-34.0 [facility] Comment on above: Performed By: #### C MP, TSH, LIPID, T4 #### [facility] [address] [place] [address] Dr. Tristan Cole MCHC (RBC) [Mass/Vol] 34.1 g/dL Normal 29.9-35.2 [facility] Comment on above: Performed By: #### C MP, TSH, LIPID, T4 #### [facility] [address] [place] [address] Dr. Tristan Cole MCV (RBC) [Entitic vol] 90.6 fL Normal 80.0-94.0 [facility] Comment on above: Performed By: #### C MP, TSH, LIPID, T4 #### [facility] [address] [place] [address] Dr. Tristan Cole MONO # 0.6 103/ul Normal 0.3-0.8 [facility] Comment on above: Performed By: #### C MP, TSH, LIPID, T4 #### [facility] [address] [place] [address] Dr. Tristan Cole Monocytes/100 WBC (Bld) 9.3 % Normal 1.7-12.0 [facility] Comment on above: Performed By: #### C MP, TSH, LIPID, T4 #### [facility] [address] [place] [address] Dr. Tristan Cole NEUT # 3.0 103/ul Normal 1.4-6.5 [facility] Comment on above: Performed By: #### C MP, TSH, LIPID, T4 #### [facility] [address] [place] [address] Dr. Tristan Cole Neutrophils/100 WBC (Bld) 51.2 % Normal 43.0-75.0 [facility] Comment on above: Performed By: #### C MP, TSH, LIPID, T4 #### [facility] [address] [place] [address] Dr. Tristan Cole Platelet mean volume (Bld) [ Entitic vol] 10.9 fL Normal 9.5-13.5 [facility] [place] [facility] Comment on above: Performed By: #### C MP, TSH, LIPID, T4 #### [facility] [address] [place] [address] Dr. Tristan Cole PLT 202 103/ul Normal 150-450 [facility] Comment on above: Performed By: #### C MP, TSH, LIPID, T4 #### [facility] [address] [place] [address] Dr. Tristan Cole RBC 5.61 106/ul Normal 4.70-6.10 [facility] Comment on above: Performed By: #### C MP, TSH, LIPID, T4 #### [facility] [address] [place] [address] Dr. Tristan Cole WBC 5.9 103/ul Normal 4.0-11.0 [facility] Comment on above: Performed By: #### C MP, TSH, LIPID, T4 #### [facility] [address] [address] [address] Tristan Cole LIPID PROFILEon 07-06-2021 CHOL-HDL RATIO NORM SEE BELOW Normal [facility] Comment on above: Result Comment: 3.3 - 4.4 LOW RISK 4.4 - 7.1 AVERAGE RISK 7.1 - 11.0 MODERATE RISK >11.0 HIGH RISK Performed By: #### C MP, TSH, LIPID, T4 #### [facility] [address] [address] [address] Tristan Cole Cholesterol [Mass/Vol] 188 mg/dL Normal <=200 [facility] Comment on above: Performed By: #### C MP, TSH, LIPID, T4 #### [facility] [address] [place] [address] Dr. Tristan Cole Cholesterol in HDL [Mass/Vol] 40 mg/dL Normal 40-60 [facility] Comment on above: Performed By: #### C MP, TSH, LIPID, T4 #### [facility] [address] [place] [address] Dr. Tristan Cole Cholesterol in LDL [Mass/Vol] 81.4 mg/dL Normal [facility] Comment on above: Performed By: #### C MP, TSH, LIPID, T4 #### [facility] [address] [place] [address] Dr. Tristan Cole Cholesterol.total/Cholestero l in HDL [Mass ratio] 4.7 {ratio} Normal [facility] Comment on above: Performed By: #### C MP, TSH, LIPID, T4 #### [facility] [address] [place] [address] Dr. Tristan Cole HDL NORMAL > or = 60 mg/dl - LO W CARDIOVASCULAR RISK <40 mg/dl - HIGH CARDIOVASCULAR RISK Normal [facility] Comment on above: Performed By: #### C MP, TSH, LIPID, T4 #### [facility] [address] [place] [address] Dr. Tristan Cole LDL CALC NORMAL SEE BELOW Normal [facility] Comment on above: Result Comment: <100 mg/dl OPTIMAL 100 - 129 mg/dl NEAR OR ABOVE OPTIMAL 130 - 159 mg/dl BORDERLINE HIGH 160 - 189 mg/dl HIGH >190 mg/dl VERY HIGH Performed By: #### C MP, TSH, LIPID, T4 #### [facility] [address] [address] [address] Tristan Cole Triglyceride [Mass/Vol] 333 mg/dL Critically high <=150 [facility] Comment on above: Performed By: #### C MP, TSH, LIPID, T4 #### [facility] [address] [address] [address] Tristan Cole VLDL CALC 66.6 mg/dL Normal [facility] Comment on above: Performed By: #### C MP, TSH, LIPID, T4 #### [facility] [address] [place] [address] Dr. Tristan Cole PROF 14(COMP METB)on 022 Albumin [Mass/Vol] 4.3 g/dL Normal 3.4-5.0 [facility] Comment on above: Performed By: #### C MP, TSH, LIPID, T4 #### [facility] [address] [place] [address] Dr. Tristan Cole Albumin/Globulin [Mass ratio] 1.3 {ratio} Normal [facility] Comment on above: Performed By: #### C MP, TSH, LIPID, T4 #### [facility] [address] [place] [address] Dr. Tristan Cole ALP [Catalytic activity/Vol] 59 U/L Normal 46-116 [facility] Comment on above: Performed By: #### C MP, TSH, LIPID, T4 #### [facility] [address] [place] [address] Dr. Tristan Cole ALT [Catalytic activity/Vol] 46 U/L Normal 16-63 [facility] Comment on above: Performed By: #### C MP, TSH, LIPID, T4 #### [facility] [address] [place] [address] Dr. Tristan Cole Anion gap [Moles/Vol] 11.7 mmol/L Normal [facility] Comment on above: Performed By: #### C MP, TSH, LIPID, T4 #### [facility] [address] [address] [address] Tristan Cole AST [Catalytic activity/Vol] 19 U/L Normal 15-37 [facility] Comment on above: Performed By: #### C MP, TSH, LIPID, T4 #### [facility] [address] [address] [address] Tristan Cole Bilirubin [Mass/Vol] 0.8 mg/dL Normal 0.2-1.0 [facility] Comment on above: Performed By: #### C MP, TSH, LIPID, T4 #### [facility] [address] [place] [address] Dr. Tristan Cole Calcium [Mass/Vol] 9.3 mg/dL Normal 8.5-10.1 [facility] Comment on above: Performed By: #### C MP, TSH, LIPID, T4 #### [facility] [address] [place] [address] Dr. Tristan Cole Chloride [Moles/Vol] 101 mmol/L Normal 98-107 [facility] Comment on above: Performed By: #### C MP, TSH, LIPID, T4 #### [facility] [address] [place] [address] Dr. Tristan Cole CO2 [Moles/Vol] 31.6 mmol/L Normal 21.0-32.0 [facility] Comment on above: Performed By: #### C MP, TSH, LIPID, T4 #### [facility] [address] [place] [address] Dr. Tristan Cole Creatinine [Mass/Vol] 1.02 mg/dL Normal 0.70-1.30 [facility] Comment on above: Performed By: #### C MP, TSH, LIPID, T4 #### [facility] [address] [place] [address] Dr. Tristan Cole EGFR-AF BAHAMIAN >60 Normal >=60 [facility] Comment on above: Performed By: #### C MP, TSH, LIPID, T4 #### [facility] [address] [place] [address] Dr. Tristan Cole EGFR-NON AF BAHAMIAN >60 Normal >=60 [facility] Comment on above: Performed By: #### C MP, TSH, LIPID, T4 #### [facility] [address] [place] [address] Dr. Tristan Cole Globulin (S) [Mass/Vol] 3.2 g/dL Normal [facility] Comment on above: Performed By: #### C MP, TSH, LIPID, T4 #### [facility] [address] [place] [address] Dr. Tristan Cole Glucose [Mass/Vol] 88 mg/dL Normal 74-106 [facility] Comment on above: Performed By: #### C MP, TSH, LIPID, T4 #### [facility] [address] [place] [address] Dr. Tristan Cole Potassium [Moles/Vol] 4.3 mmol/L Normal 3.5-5.1 [facility] Comment on above: Performed By: #### C MP, TSH, LIPID, T4 #### [facility] [address] [place] [address] Dr. Tristan Cole Protein [Mass/Vol] 7.5 g/dL Normal 6.4-8.2 [facility] Comment on above: Performed By: #### C MP, TSH, LIPID, T4 #### [facility] [address] [place] [address] Dr. Tristan Cole Sodium [Moles/Vol] 140 mmol/L Normal 136-145 [facility] Comment on above: Performed By: #### C MP, TSH, LIPID, T4 #### [facility] [address] [place] [address] Dr. Tristan Cole Urea nitrogen [Mass/Vol] 20.0 mg/dL Critically high 7.0-18 .0 [facility] Comment on above: Performed By: #### C MP, TSH, LIPID, T4 #### [facility] [address] [place] [address] Dr. Tristan Cole Urea nitrogen/Creatinine [Mass ratio] 19.6 mg/mg Normal [facility] Comment on above: Performed By: #### C MP, TSH, LIPID, T4 #### [facility] [address] [place], [place] [address] Dr. Tristan Cole T4on 07-06-2021 T4 [Mass/Vol] 8.00 ug/dL Normal 4.50-12.10 [facility] Comment on above: Performed By: #### C MP, TSH, LIPID, T4 #### [facility] [address] [place], [place] [address] Dr. Tristan Cole TSHon 07-06-2021 TSH 1.823 uIU/mL Normal 0.358-3.740 [facility] Comment on above: Performed By: #### C MP, TSH, LIPID, T4 #### [facility] [address] [address] [address] Tristan Cole TSH RANGE SEE BELOW Normal [facility] Comment on above: Result Comment: <0.3 4 UIU/ml HYPERTHYROID 0.34-5.60 UIU/ml EUTHYROID >5.60 UIU/ml HYPOTHYROID Performed By: #### C MP, TSH, LIPID, T4 #### [facility] [address] [address] [address] Tristan Cole Vital Signs Date Time Vital Sign Value Performing Clinician May mcpherson 01-08-2022 08:11-0500 Body height 177.8 cm No Physician [facility] 01-08-2022 08:11-0500 Body mass index (BMI) [Ratio] 30.13 kg/m2 No Physician [facility] 01-08-2022 08:11-0500 Body temperature 97.39 [degF] No Physician [facility] 01-08-2022 08:11-0500 Body weight 95.25 kg No Physician [facility] 01-08-2022 08:11-0500 Diastolic blood pressure 90 mm[Hg] No Physician [facility] 01-08-2022 08:11-0500 Heart rate 92 /min No Physician [facility] 01-08-2022 08:11-0500 Respiratory rate 20 /min No Physician [facility] 01-08-2022 08:11-0500 SaO2% (BldA) [Mass fraction] 96 % No Physician [facility] 01-08-2022 08:11-0500 Systolic blood pressure 133 mm[Hg] No Physician [facility] Encounters Encounter Date Encounter Type Care Provider Facility Start: 07-01-2022 End: 07-02-[address] ALFREDO RODRIGUEZ . Facility: Start: 01-08-2022 End: 01-08-2022 Emergency department patient visit NO PCP PHYSICIAN [facility] Start: 01-08-2022 End: 01-08-2022 Emergency department patient visit No Physician [facility] Emergency Room Comment on above: Nausea and vomiting, unspecified vomiting type (Primary Dx); Diarrhea, unspecified type Start: 01-08-2022 End: 01-08-2022 Evaluation and management of inpatient No Physician [facility] Start: 07-06-2021 End: 07-07-[address] ALFREDO RODRIGUEZ . Facility: Procedures Date Procedure Procedure Detail Performing Clinician Start: 07-01-[address] AVELINA RODRIGUEZ . Comment on above: Performed By: #### C MP, TSH, LIPID, T4 #### [facility] [address] [place] [address] Dr. Tristan Cole Start: 01-08-2022 Basic metabolic panel calcium total Marely VELEZ Work Phone: Start: 01-08-2022 CBC W Auto Different ial panel - Blood Marely VELEZ Work Phone: Start: 01-08-2022 GREEN YELLOW PST Jaclynam in Rufina Payne DO Work Phone: Start: 01-08-2022 LAVENDER - EDTA Rene Payne DO Work Phone: Start: 01-08-2022 RAINBOW DRAW G1 Rene Payne DO Work Phone: Start: 01-08-2022 SST - GOLD Fede Payne DO Work Phone: Start: 07-06-[address] AVELINA RODRIGUEZ . Comment on above: Performed By: #### P SASC #### [facility] [address] [place] [address] Dr. Tristan Cole Plan of Treatment Date Care Activity Detail Author Start: 01-08-2022 Adolescent depressio n screening assessment Depression Screening [facility] Start: 01-08-2022 Hepatitis C screening Hepatitis C Sc reening [facility] Start: 01-08-2022 HIV screening HIV Screening [facility] Start: 01-08-2022 Lipid panel Cholesterol Sc reening (Lipid Panel) [facility] Start: 01-08-2022 Social Influencers o f Health Screening Social Influencers of Health Screening [facility] Start: 10-28-2021 Influenza vaccination Influenza Vacc ine (#1) [facility] Start: 12-26-2020 COVID-19 Vaccine (3 - Booster for Pfizer series) COVID-19 Vaccine (3 - Booster for Pfizer series) [facility] Start: 11-09-1998 DTaP,Tdap,and Td Vac cines (1 - Tdap) DTaP,Tdap,and Td Vaccines (1 - Tdap) [facility] Immunizations Immunization Date Immunization Notes Care Provider Fa cility 02-25-2021 influenza virus vacc ine, unspecified formulation No Physician [facility] Payers Date Payer Category Payer Unknown [facility] [employer] [facility] [id number] 2021-Present [address] [place] [address] [id number] 2021 Unknown [id number] 1979 Unknown [id number] 1960 Self-pay [id number] Unknown [id number] Unknown [id number] Social History Date Type Detail Facility [facility]: [facility] Start: 01-08-2022 Tobacco use and exposure Smokeless t obacco non-user [facility] Start: 01-08-2022 Alcohol intake Current drinke r of alcohol (finding) [facility] Start: 01-08-2022 Alcohol Comment Occasional Drinker T [facility] Start: 1980 Sex Assigned At Not on file T [facility] Start: 12-29-2021 End: 01-08-2022 Exposure to SARS-CoV-2 (event) Not sure [facility] Clinical Note 01-08-2022 ED Bed Hold Note - Nicki Eden RN - 01/08/2022 9:22 AM EST Note Date & Type Note Facility 01-08-2022 Note Formatting of this n ote might be different from the original. Bed: ED-03 Expected date: Expected time: Means of arrival: Comments: Ralph [facility] Note 01-08-2022 ED Bed Hold Note - Nicki Eden RN - 01/08/2022 9:22 AM EST Note Date & Type Note Facility 01-08-2022 Miscellaneous Notes Formattin g of this note might be different from the original. Bed: ED-03 Expected date: Expected time: Means of arrival: Comments: Ralph documented in this encounter [facility] History of Present illness Narrative 01-08-2022 Joleen Polanco RN - 01/08/2022 8:13 AM EST Note Date & Type Note Facility 01-08-2022 History of Presen t illness Narrative Patient presents to the ED c/o a bad hangover. Patient came in from out of town to hangout with old friends. They were all drinking and patient states, I knew I should have stopped after a few glasses of wine. stated he has fatty liver disease, he drank one beer before the green party and then had 5 glasses of wine when there. Patient c/o headache, diarrhea, vomiting. documented in this encounter [facility] Evaluation note Note Date & Type Note Facility Evaluation note Diagnosis Nausea and vomiting, unspecified vomiting type- Primary Diarrhea, unspecified type documented in this encounter [facility] Hospital Discharge instructions Attachments Note Date & Type Note Facility Hospital Discharge instructions The following attachments cannot be sent through Care Everywhere.Diarrhea ([place])Nausea and Vomiting ([place])documented in this encounter [facility] Summary Purpose Family History No Family History Records FoundNo Family History Records Found Advance Directives No Advanced Directives Records FoundNo Advanced Directives Records Found Additional Source Comments Reason for Visit (unrecogniz ed section and content) Reason Comments Hangover Scheduled Active and Recently Administ ered Medications (unrecognized section and content) Medication Order 01/06/2022 01/07/2022 01/08/2022 ketorolac (TORADOL) injection 15 mg (COMPLETED) 15 mg, intravenous, Once, On 01/08/22 at 0942, For 1 dose 0955 (Given - Provid er: Chela Wright RN) ondansetron (PF) (ZOFRAN) injection 4 mg (COMPLETED) 4 mg, intravenous, Once, On 01/08/22 at 0931, For 1 dose 0955 (Given - Provid er: Chela Wright RN) sodium chloride 0.9 % bolus 1,000 mL (COMPLETED) 1,000 mL, intravenous, at 1,000 mL/hr, Administer over 1 Hours, Once, On 01/08/22 at 0931, For 1 dose 0954 (New Bag - Prov ider: Chela Wright RN)1030 (Stopped - Provider: Chela Wright RN) Care Teams (unrecognized sec tion and content) [employer] Apprentice Relationship Specialty Start Date End Date Physician, No Pcp PCP - General 01/08/22 (unrecognized sect ion and content) No Status Records FoundNo Status Records Found INFORMATION SOURCE (unrecogn ized section and content) DATE CREATED AUTHOR 01/08/2022 [facility] DATE CREATED AUTHOR AUTHOR'S ORGANIZ ATION 07/01/2022 [facility] FOR RECORDS PERTAINING TO PATIENTS WHO ARE OR HAVE BEEN ENROLLED IN A CHEMICAL DEPENDENCY/SUBSTANCEABUSE PROGRAM, SOME INFORMATION MAY BE OMITTED. This clinical summary was aggregated from multiple sources. Caution should be exercised in using it in the provision of clinical care. This summary normalizes information from multiple sources, and as a consequence, information in this document may materially change the coding, format and clinical context of patient data. In addition, data may be omitted in some cases. CLINICAL DECISIONS SHOULD BE BASED ON THE PRIMARY CLINICAL RECORDS. [facility] [employer] provides no warranty or guarantee of the accuracy or completeness of information in this document.
== END 2023-01-09 08:38 | disposition home or self-care (01) ==
LOC: MRI 08:37
PROVIDERS: PCP Family Medicine; Visit Provider Family Medicine
DX: M47.812 Spondylosis without myelopathy or radiculopathy, cervical region (principal); M50.30 Other cervical disc degeneration, unspecified cervical region
CPT/HCPCS: 70030; 72141

== ENCOUNTER 2025-02-06 14:33 | Outpatient (OUT) | payer BC, SELFPAY ==
--- OUTSIDE RECORDS SUMMARY | 2025-02-06 14:43 | XMS_ITS | CCD ---
Author Organization [facility] Care Team Providers Care Stave Jointer Name Role Phone Physician, No Pcp Primary [...] HOY ., DR FUENTES Primary Care Unavailable HOY, ALFREDO M Referring Unavailable HOY, ALFREDO M Primary Care Unavailable JARAD IQBAL Attending Unavailable HOY, ALFREDO M Referring Unavailable HOY, ALFREDO M Primary Care Unavailable Alfredo Johansen MD Primary Care Provider [phone] [phone] Alfredo Johansen MD Primary Care Provider [phone] [phone] Alfredo Johansen MD Primary Care Provider [phone] 3-1990 BRIANA CHEATHAM Attending Unavailable HOY, ALFREDO M Referring Unavailable HOY, ALFREDO M Primary Care Unavailable VIVIEN LI Attending Unavailable HOY, ALFREDO M Referring Unavailable HOY, ALFREDO M Primary Care Unavailable SATINDER ROLANDO E Attending Unavailable RAJAN, ROLANDO E Referring Unavailable HOY, ALFREDO M Primary Care Unavailable SATINDER, ROLANDO E Admitting Unavailable RAJAN ROLANDO E Attending Unavailable HOY, ALFREDO M Referring Unavailable HOY, ALFREDO M Primary Care Unavailable VIVIEN LI Attending Unavailable HOY, ALFREDO M Referring Unavailable HOY, ALFREDO M Primary Care Unavailable VIVIEN LI Attending Unavailable HOY, ALFREDO M Referring Unavailable HOY, ALFREDO M Primary Care Unavailable VIVIEN LI Attending Unavailable HOY, ALFREDO M Referring Unavailable HOY, ALFREDO M Primary Care Unavailable VIVIEN LI Attending Unavailable HOY, ALFREDO M Referring Unavailable HOY, ALFREDO M Primary Care Unavailable VIVIEN LI Attending Unavailable HOY, ALFREDO M Referring Unavailable HOY, ALFREDO M Primary Care Unavailable VIVIEN LI Attending Unavailable HOY, ALFREDO M Referring Unavailable HOY, ALFREDO M Primary Care Unavailable VIVIEN LI Attending Unavailable HOY, ALFREDO M Referring Unavailable HOY, ALFREDO M Primary Care Unavailable BRIANA CHEATHAM Attending Unavailable HOY, ALFREDO M Referring Unavailable HOY, ALFREDO M Primary Care Unavailable VIVIEN LI Attending Unavailable HOY, ALFREDO M Referring Unavailable HOY, ALFREDO M Primary Care Unavailable ROLANDO RAJAN Attending Unavailable ROLANDO RAJAN Referring Unavailable HOY, ALFREDO M Primary Care Unavailable ROLANDO RAJAN Admitting Unavailable ROLANDO RAJAN Attending Unavailable HOY, ALFREDO M Referring Unavailable HOY, ALFREDO M Primary Care Unavailable Medications Current Medications MedicationDrug Class(es)DatesSig (Normalized)Sig (Original)[id number] 200 actuat albuterol 0.09 mg/actuat metered dose inhaler (6 sources)beta2-Adrenergic AgonistStart: 81-58-0907jsmq 2 puff(s) by inhalation every four hours as needed for wheezingalbuterol (PROVENTIL HFA;VENTOLIN HFA) 90 mcg/actuation inhaler Inhale 2 puffs every 4 (four) hoursas needed for wheezing. 1 Inhaler 02/21/2020 ActiveALPRAZolam 0.25 mg oral tablet (6 sources)BenzodiazepineStart: 72-48-0744qgzq 0.5-1 tablets by mouth three times dailyALPRAZolam (XANAX) 0.25 mg tablet TAKE 1/2 (ONE-HALF) TO 1 (ONE) TABLET BY MOUTH THREE TIMES DAILY FOR 7 DAYS 12/09/2019 Activebenzonatate 100 mg oral capsule (6 sources)Non-narcotic AntitussiveStart: 22-18-6228uulo 1 capsule by mouth every eight hoursbenzonatate (TESSALON) 100 mg capsule Take 1 capsule (100 mg total) by mouth every 8 (eight) hours.21 capsule 02/21/2020 Activecitalopram 40 mg oral tablet (6 sources)Serotonin Reuptake Inhibitortake 1 tablet by mouth in the morning citalopram (CeleXA) 40 mg tablet Take 1 tablet (40 mg total) by mouth in the morning. Activediclofenac sodium 75 mg delayed release oral tablet (6 sources)Nonsteroidal Anti-inflammatory DrugStart: 29-69-6813utyd 1 tablet by mouth in the morning, then take 1 tablet by mouth at bedtimediclofenac (VOLTAREN) 75 mg EC tablet Take 1 tablet (75 mg total) by mouth in the morning and 1 tablet (75 mg total) before bedtime. 05/27/2019 Activeempagliflozin 10 mg oral tablet (6 sources)Sodium-Glucose Cotransporter 2 InhibitorStart: 34-82-5253zzhg 0.5 tablet by mouth once dailyempagliflozin (JARDIANCE) 10 mg tablet tablet 1/2 tablet Orally Once a day for 90 days 06/01/2022 Activegabapentin (6 sources)Anti-epileptic AgentGABAPENTIN ORAL Take 600 mg by mouth 3 (three) times a day. Two at night (1200 mg) and one in the morning (600 mg) Active GABAPENTIN ORAL Take 600 mg by mouth 3 (three) times a day. Two at night (1200 mg) and one in the morning (600 mg) 0 Activeglimepiride 2 mg oral tablet (2 sources)Sulfonylureatake 1 tablet by mouth once daily before breakfast glimepiride (AMARYL) 2 mg tablet Take 1 tablet (2 mg total) by mouth every morning before breakfast. ActivelamoTRIgine 100 mg oral tablet (6 sources)Mood Stabilizer, Anti-epileptic Agenttake 1 tablet by mouth in the morninglamoTRIgine (LaMICtal) 100 mg tablet Take 1 tablet (100 mg total) by mouth in the morning. Activelevothyroxine sodium 0.05 mg oral tablet (6 sources)l-ThyroxineStart: 95-49-2627rrkp 1 tablet by mouth in the morning levothyroxine (SYNTHROID, LEVOTHROID) 50 MCG tablet Take 1 tablet (50 mcg total) by mouth in the morning. 11/15/2019 Activenabumetone 500 mg oral tablet (6 sources)Nonsteroidal Anti-inflammatory DrugStart: 41-86-5006qoyd 2 tablets by mouth in the morning, then take 2 tablets by mouth at bedtimenabumetone (RELAFEN) 500 mg tablet Take 2 tablets (1,000 mg total) by mouth in the morning and 2 tablets (1,000 mg total) before bedtime. 12/29/2022 Activepantoprazole 40 mg delayed release oral tablet (6 sources)Proton Pump InhibitorStart: 92-70-7563odct 1 tablet by mouth once daily before breakfastpantoprazole (PROTONIX) 40 mg EC tablet Take 1 tablet (40 mg total) by mouth every morning before breakfast. 12/29/2022 Activepramipexole dihydrochloride 0.5 mg oral tablet (6 sources)Nonergot Dopamine Agonisttake 1 tablet by mouth in the morning pramipexole (MIRAPEX) 0.5 mg tablet Take 1 tablet (0.5 mg total) by mouth in the morning. Activerizatriptan 10 mg oral tablet (6 sources)Serotonin-1b and Serotonin-1d Receptor Agonistrizatriptan (MAXALT) 10 mg tablet Take 1 tablet (10 mg total) by mouth once as needed. May repeat in 2 hours if unresolved. Do not exceed 30 mg in 24 hours. ActivetiZANidine 2 mg oral tablet (6 sources)Central alpha-2 Adrenergic AgonisttiZANidine (ZANAFLEX) 1 MG tablet Take 4 split tablet (4 mg total) by mouth 3 (three) times a day as needed. Active Completed/Discontinued Medications MedicationDrug Class(es)DatesSig (Normalized)Sig (Original)1 ml ketorolac tromethamine 30 mg/ml injection (1 source)Nonsteroidal Anti-inflammatory Drug, Cyclooxygenase InhibitorStart: 01-08-2022 End: 13-75-5627lxphxprfv (TORADOL) injection 15 mg2 ml ondansetron 2 mg/ml injection (7 sources)Serotonin-3 Receptor AntagonistStart: 01-08-2022 End: 41-45-3970nmzegqshyog (PF) (ZOFRAN) injection 4 mgtake 1 tablet by mouth once daily as neededondansetron (ZOFRAN) 4 mg tablet Take 1 tablet (4 mg total) by mouth daily as needed. Rpbnny1026 ml sodium chloride 9 mg/ml injection (1 source)Start: 01-08-2022 End: 62-17-2496hrwqzc chloride 0.9 % bolus 1,000 mL Problems Active Problems Problem ClassificationProblemDateDocumented DateEpisodic/ChronicAnxiety disorders (6 sources)Generalized anxiety disorder; Translations: [Generalized anxiety disorder]Onset: 636070-92-2330TuqdoqmRrbe disorders (6 sources)Recurrent major depressive episodes, moderate ; Translations: [Major depressive disorder, recurrent, moderate]Onset: 105652-57-8324Dpilrsf Nausea and vomiting (2 sources)Nausea and vomiting; Translations: [Nausea with vomiting, unspecified]Onset: 33-06-3652FuzebtvhGnqbh gastrointestinal disorders (1 source)Diarrhea; Translations: [Diarrhea, unspecified]EpisodicOther gastrointestinal disorders (1 source)Diarrhea, unspecified; Translations: [Diarrhea, unspecified]Onset: 40-65-2827TofikjlhTrkmtcks codes; unclassified (1 source)Pain, unspecified; Translations: [Pain, unspecified]Onset: 04-04-2023 EpisodicSpondylosis; intervertebral disc disorders; other back problems (13 sources)Other cervical disc displacement, unspecified cervical region; Translations: [Spondylosis without myelopathy or radiculopathy, cervical region] Onset: 408512-23-4730MqmzaxxTakzjwcktpl; intervertebral disc disorders; other back problems (14 sources)Radiculopathy, cervical region; Translations: [Stenosis of spinal canal due to intervertebral disc]Onset: 084015-90-0071VvisgdpkSipoleainbzd (1 source)ConsultOnset: 70-09-9708Aalheuzxyxzd (1 source)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]Onset: 12-27-2024 Past or Other Problems Problem ClassificationProblemDateDocumented DateEpisodic/ChronicOther connective tissue disease (1 source)Weakness of right hand; Translations: [Other symptoms and signs involving the musculoskeletal system]47-40-3714DqynrkczUhvsx nervous system disorders (1 source)Paresthesia; Translations: [Paresthesia of skin]10-26-6405Kubhqrfo Results Test NameValueInterpretationReference RangeFacilityCBC AUTO DIFFon 07-01-2022 BASO #0.0 103/ulNormal0.0-0.1The [facility] HospitalComment on above:Performed By: #### CBC #### [facility] [address] [place], [place] [address] Dr. Tristan ColeBasophils/100 WBC (Bld)0.7 %Normal0.2-2.0The [facility] Comment on above:Performed By: #### CBC #### [facility] [address] [place] [address] Dr. Tristan Davalos #0.1 103/ulNormal0.0-0.7The [facility] HospitalComment on above: Performed By: #### CBC #### [facility] [address] [place] [address] Dr. Tristan Baronosinophils/100 WBC (Bld)2.6 %Normal0.9-7.0The [facility] Comment on above:Performed By: #### CBC #### [facility] [address] [place] [address] Dr. Tristan Baronrythrocyte distribution width (RBC) [Ratio]12.5 %Ibtfuu78.0-15.0 The [facility] HospitalComment on above:Performed By: #### CBC #### [facility] [address] [place] [address] Dr. Tristan ColeHematocrit (Bld) [Volume fraction]51.2 %Qcfmxd51.0-54.0The [facility] HospitalComment on above:Performed By: #### CBC #### [facility] [address] [place] [address] Dr. Tristan ColeHemoglobin (Bld) [Mass/Vol]17.7 g/fEKaytbr71.0-18.0The [facility] HospitalComment on above:Performed By: #### CBC #### [facility] [address] [place] [address] Dr. Tristan Cage #0.02 10e3/ulNormal0.00-0.03The [facility] HospitalComment on above:Performed By: #### CBC #### [facility] [address] [place] [address] Dr. Tristan Cage %0.4 %Normal0.0-0.5The [facility] HospitalComment on above: Performed By: #### CBC #### [facility] [address] [address] [address] Tristan Torrez #1.6 103/ulNormal1.2-3.8The [facility] HospitalComment on above:Performed By: #### CBC #### [facility] [address] [address] [address] Tristan Toromphocytes/100 WBC (Bld)35.8 %Epwntg80.5-60.0The [facility] HospitalComment on above:Performed By: #### CBC #### [facility] [address] [address] [address] Tristan Friedman DIFF REQNONormalThe [facility] HospitalComment on above: Performed By: #### CBC #### [facility] [address] [place] [address] Dr. Tristan Brannon (RBC) [Entitic mass]30.4 pxCxlvhu43.9-34.0The [facility] HospitalComment on above:Performed By: #### CBC #### [facility] [address] [place] [address] Dr. Tristan Brannon (RBC) [Mass/Vol]34.6 g/aQEigqaz54.9-35.2The [facility] HospitalComment on above:Performed By: #### CBC #### [facility] [address] [place] [address] Dr. Tristan Brannon (RBC) [Entitic vol]87.8 uKCjthbf31.0-94.0The [facility] HospitalComment on above:Performed By: #### CBC #### [facility] [address] [place] [address] Dr. Tristan Mahmood #0.4 103/ulNormal0.3-0.8The [facility] HospitalComment on above:Performed By: #### CBC #### [facility] [address] [place] [address] Dr. Tristan Grafocytes/100 WBC (Bld)9.6 %Normal1.7-12.0The [facility] Comment on above:Performed By: #### CBC #### [facility] [address] [address] [address] Tristan Braden #2.3 103/ulNormal1.4-6.5The [facility] Hospitalment on above:Performed By: #### CBC #### [facility] [address] [address] [address] Tristan Sarabiautrophils/100 WBC (Bld)50.9 %Wwbdmv54.0-75.0The [facility] on above:Performed By: #### CBC #### [facility] [address] [place] [address] Dr. Tristan ColePlatelet mean volume (Bld) [Entitic vol]11.2 fLNormal9.5-13.5The [facility] on above:Performed By: #### CBC #### [facility] [address] [place] [address] Dr. Tristan oClePLT173 103/ncKqrksw979-192Iny [facility] on above: Performed By: #### CBC #### [facility] [address] [place] [address] Dr. Tristan ColeRBC5.83 106/ulNormal4.70-6.10The [facility] on above:Performed By: #### CBC #### [facility] [address] [place] [address] Dr. Tristan ColeWBC4.6 103/ulNormal4.0-11.0The [facility] on above: Performed By: #### CBC #### [facility] [address] [place] [address] Dr. Tristan ColeLIPID PROFILEon 68-35-1760TWGG-HDL RATIO NORMSSumma Health Barberton Campus on above:Result Comment: 3.3 - 4.4 LOW RISK 4.4 - 7.1 AVERAGE RISK 7.1 - 11.0 MODERATE RISK >11.0 HIGH RISKPerformed By: #### LIPID, CMP, T4, TSH #### [facility] [address] [place] [address] Dr. Tristan ColeCholesterol [Mass/Vol]217 mg/dLCritically high<=200The [facility] on above:Performed By: #### LIPID, CMP, T4, TSH #### [facility] [address] [place] [address] Dr. Tristan Cainesterol in HDL [Mass/Vol]41 mg/dLRngxbm63-81Osc [facility] on above:Performed By: #### LIPID, CMP, T4, TSH #### [facility] [address] [place] [address] Dr. Tristan ColeCholesterol in LDL [Mass/Vol]117.0 mg/dLPremier Health on above:Performed By: #### LIPID, CMP, T4, TSH #### [facility] [address] [place] [address] Dr. Tristan Sims.total/Cholesterol in HDL [Mass ratio]5.3 {ratio} NormalThe [facility] on above:Performed By: #### LIPID, CMP, T4, TSH #### [facility] [address] [place] [address] Dr. Tristan Shipman NORMAL> or = 60 mg/dl - LOW CARDIOVASCULAR RISK <40 mg/dl - HIGH CARDIOVASCULAR RISKPremier Health on above:Performed By: #### LIPID, CMP, T4, TSH #### [facility] [address] [place] [address] Dr. Tristan ColeLDL CALC NORMALSEE BELOWNoOhioHealth Van Wert HospitalComformerly [facility] on above:Result Comment: <100 mg/dl OPTIMAL 100 - 129 mg/dl NEAR OR ABOVE OPTIMAL 130 - 159 mg/dl BORDERLINE HIGH 160 - 189 mg/dl HIGH >190 mg/dl VERY HIGH Performed By: #### LIPID, CMP, T4, TSH #### [facility] [address] [place] [address] Dr. Tristan ColeTriglyceride [Mass/Vol]295 mg/dLCritically high<=150The [facility] on above:Performed By: #### LIPID, CMP, T4, TSH #### [facility] [address] [address] [address] Tristan TejadaLDL CALC59.0 mg/dLNormalThe [facility] HospitalComment on above: Performed By: #### LIPID, CMP, T4, TSH #### [facility] [address] [address] [address] Tristan Walker 14(COMP METB)on 50-12-0720Zxomewz [Mass/Vol]3.9 g/dLNormal 3.4-5.0The [facility] HospitalComment on above:Performed By: #### LIPID, CMP, T4, TSH #### [facility] [address] [address] [address] Tristan ColeAlbumin/Globulin [Mass ratio]1.1 {ratio}NormalThe [facility] HospitalComment on above:Performed By: #### LIPID, CMP, T4, TSH #### [facility] [address] [place] [address] Dr. Tristan Brown [Catalytic activity/Vol]75 U/EGmhebh15-821Lqf [facility] Hospitalment on above:Performed By: #### LIPID, CMP, T4, TSH #### [facility] [address] [place] [address] Dr. Tristan Dixon [Catalytic activity/Vol]45 U/TCltpgx29-79Nno [facility] Hospitalment on above:Performed By: #### LIPID, CMP, T4, TSH #### [facility] [address] [place] [address] Dr. Tristan Spain gap [Moles/Vol]10.3 mmol/LNormalThe [facility] Comment on above:Performed By: #### LIPID, CMP, T4, TSH #### [facility] [address] [place] [address] Dr. Tristan Garcia [Catalytic activity/Vol]28 U/ALzttuw32-83Axz [facility] Hospitalment on above:Performed By: #### LIPID, CMP, T4, TSH #### [facility] [address] [place] [address] Dr. Tristan Kingirubin [Mass/Vol]1.0 mg/dLNormal0.2-1.0The [facility] Comment on above:Performed By: #### LIPID, CMP, T4, TSH #### [facility] [address] [place] [address] Dr. Tristan ColeCalcium [Mass/Vol]8.9 mg/dLNormal8.5-10.1The [facility] Comment on above:Performed By: #### LIPID, CMP, T4, TSH #### [facility] [address] [place] [address] Dr. Tristan ColeChloride [Moles/Vol]103 mmol/VFeqrly24-079Llf [facility] Comment on above:Performed By: #### LIPID, CMP, T4, TSH #### [facility] [address] [place] [address] Dr. Tristan ColeCO2 [Moles/Vol]29.9 mmol/JVcfmif71.0-32.0The [facility] Comment on above:Performed By: #### LIPID, CMP, T4, TSH #### [facility] [address] [place] [address] Dr. Tristan ColeCreatinine [Mass/Vol]0.99 mg/dLNormal0.70-1.30The [facility] HospitalComment on above:Performed By: #### LIPID, CMP, T4, TSH #### [facility] [address] [place] [address] Dr. Tristan BaronGFR-AF SOMALI>60Normal>=60The [facility] HospitalComment on above:Performed By: #### LIPID, CMP, T4, TSH #### [facility] [address] [place] [address] Dr. Tristan BaronGFR-NON AF SOMALI>60Normal>=60The [facility] HospitalComment on above:Performed By: #### LIPID, CMP, T4, TSH #### [facility] [address] [place] [address] Dr. Tristan ColeGlobulin (S) [Mass/Vol]3.5 g/dLNormalThe [facility] HospitalComment on above:Performed By: #### LIPID, CMP, T4, TSH #### [facility] [address] [address] [address] Tristan ColeGlucose [Mass/Vol]121 mg/dLCritically zmem37-154Xgz [facility] HospitalComment on above:Performed By: #### LIPID, CMP, T4, TSH #### [facility] [address] [place] [address] Dr. Tristan ColePotassium [Moles/Vol]4.2 mmol/LNormal3.5-5.1The [facility] Comment on above:Performed By: #### LIPID, CMP, T4, TSH #### [facility] [address] [place] [address] Dr. Tristan ColeProtein [Mass/Vol]7.4 g/dLNormal6.4-8.2The [facility] Comment on above:Performed By: #### LIPID, CMP, T4, TSH #### [facility] [address] [place] [address] Dr. Tristan ColeSodium [Moles/Vol]139 mmol/YIihzje374-305Mip [facility] Comment on above:Performed By: #### LIPID, CMP, T4, TSH #### [facility] [address] [place] [address] Dr. Tristan ColeUrea nitrogen [Mass/Vol]10.0 mg/dLNormal7.0-18.0The [facility] HospitalComment on above:Performed By: #### LIPID, CMP, T4, TSH #### [facility] [address] [place] [address] Dr. Tristan Solomon nitrogen/Creatinine [Mass ratio]10.1 mg/mgNormalThe [facility] HospitalComment on above:Performed By: #### LIPID, CMP, T4, TSH #### [facility] [address] [place] [address] Dr. Tristan ColeT4on 15-31-2136V8 [Mass/Vol]7.00 ug/dLNormal4.50-12.10The [facility] HospitalComment on above:Performed By: #### LIPID, CMP, T4, TSH #### [facility] [address] [place], [place] [address] Dr. Tristan Khan 75-77-4640TMC3.293 uIU/mLNormal0.358-3.740[facility] HospitalComment on above:Performed By: #### LIPID, CMP, T4, TSH #### [facility] [address] [place], [place] [address] Dr. Tristan Holcomb metabolic 2000 panelon 19-83-2491Yzmzrc [Catalytic activity/Vol]59 U/DXjygmw41-09Qsuhr [facility] HospitalComment on above:Performed By: #### 33932-0 #### [facility] [place] [facility] [address] [place], [place] [address]Yxbfp gap [Moles/Vol]9 mmol/L6 - 18Tr[facility] HealthCalcium [Mass/Vol]9.4 mg/dL8.9 - 10.3 mg/dLTrinity HealthChloride [Moles/Vol]105 mmol/L 98 - 107 mmol/LTrinity HealthCO2 [Moles/Vol]25 mmol/L22 - 32 mmol/LTrinity HealthCreatinine [Mass/Vol]0.89 mg/dL0.60 - 1.30 mg/dLTrinity HealthGFR/1.73 sq M.predicted MDRD (S/P/Bld) [Vol rate/Area]110 mL/min/{1.73_m2}- PINFTrinlancaster municipal hospital HealthComment on above:Effective December 05, 2021, calculation based on the Chronic Kidney Disease Epidemiology Collaboration (CKD-EPI) equation refit without adjustment for race.Glucose [Mass/Vol]151 mg/xHLczk01 - 99 mg/dLTrinity HealthInterpretation and review of laboratory resultsAbnormalTrinity Health Potassium [Moles/Vol]4.1 mmol/L3.6 - 5.1 mmol/LTrinity HealthSodium [Moles/Vol] 139 mmol/L136 - 145 mmol/LTrinity HealthUrea nitrogen [Mass/Vol]15 mg/dL8 - 20 mg/dLTrinity HealthUrea nitrogen/Creatinine [Mass ratio]16.9 mg/mg12.0 - 20.0 [facility] HealthHemogram and platelets WO differential panel (Bld)on 01-08-2022 Basophils (Bld) [#/Vol]0.02 10*3/uLNormal0.00-0.20[facility] HospitalComment on above:Performed By: #### 09908-2 #### [facility] [address] [place] [address] 201[address]Hbkjjsenh/100 WBC (Bld)0.3 %Normal0.0-2.0[facility] HospitalComformerly [facility] on above:Performed By: #### 95936-6 #### [facility] [address] [place] [address] 17971Uyfkhwxkuig (Bld) [#/Vol]0.03 10*3/uLNormal0.00-0.70[facility] HospitalComment on above:Performed By: #### 27061-2 #### [facility] [address] [place] [address] 95[address]Wqhafrjfcdy/100 WBC (Bld)0.5 %Normal0.0-7.0[facility] HospitalComment on above:Performed By: #### 25623-4 #### [facility] [address] [place] [address] 77277Zplibvlviwz distribution width (RBC) [Ratio]11.8 %Normal 11.0-14.8[facility] HospitalComformerly [facility] on above:Performed By: #### 20236-4 #### [facility] [address] [place] [address] 440[address]Ttjztbegap (Bld) [Volume fraction]49.6 %High39.0-49.0[facility] HospitalComformerly [facility] on above:Performed By: #### 59152-7 #### [facility] [address] [place] [address] 03545Dtndlhzbqi (Bld) [Mass/Vol]17.8 g/rNClia74.5-17.5[facility] HospitalComment on above:Performed By: #### 42695-8 #### [facility] [address] [place] [address] SH[address] [place]IRANDA [place], [place] [address]Aibgrwzq granulocytes (Bld) [#/Vol]0.03 10*3/uLNormal 0.00-0.10[facility] HospitalComformerly [facility] on above:Performed By: #### 49561-9 #### [facility] [address] [place] [address] [place], [place] [address]Kbejpiaz granulocytes/100 WBC (Bld)0.5 %Normal0.0-1.2Mount [facility] HospitalComment on above:Performed By: #### 22317-1 #### [facility] [address] [place] [address]Sgpzdlcbyov (Bld) [#/Vol]1.01 10*3/uLNormal1.00-4.80Mount [facility] HospitalComment on above:Performed By: #### 68865-0 #### [facility] [address] [place] [address] [place], [place] [address]Bcqgqpwclev/100 WBC (Bld)15.6 %Low17.9-49.6[facility] HospitalComformerly [facility] on above:Performed By: #### 21661-4 #### [facility] [address] [place], [place] [address], [place] [address]ZUP15.9 qhjCefyan66.0-34.0[facility] HospitalComment on above:Performed By: #### 81016-2 #### [facility] [address] [place] [address] [place], [place] [address]WVNH (RBC) [Mass/Vol]35.9 g/aZOjab82.8-35.3[facility] HospitalComformerly [facility] on above:Performed By: #### 85570-4 #### [facility] [address] [place], [place] [address] [place], [place] [address]CYB (RBC) [Entitic vol]86.1 cMHadrrf35.0-97.0[facility] HospitalComment on above:Performed By: #### 06897-5 #### [facility] [place], [place] [address]Bhpvqcart (Bld) [#/Vol]0.36 10*3/uLNormal0.00-0.90[facility] HospitalComment on above:Performed By: #### 54091-2 #### [facility] [place], [place] [address]Xdxjbveyk/100 WBC (Bld)5.5 %Normal0.0-12.0[facility] HospitalComformerly [facility] on above:Performed By: #### 54517-9 #### [facility] [address] [place] [address] [place], [place] [address]Mamcnnzgayc Absolute5.04 K/mcLNormal1.80-7.70[facility] HospitalComformerly [facility] on above:Performed By: #### 82698-9 #### [facility] [place], [place] [address]Nnldfbtgeci/100 WBC (Bld)77.6 %High38.1-75.5[facility] HospitalComformerly [facility] on above:Performed By: #### 72930-0 #### [facility] [place], [place] [address]Kwxjnezj mean volume (Bld) [Entitic vol]11.3 fLNormal 6.2-12.1[facility] HospitalComformerly [facility] on above:Performed By: #### 37300-8 #### [facility] [address] [place], [place] [address]Xjyltfoab (Bld) [#/Vol]172 10*3/fSIldrro611-295Uwvnq [facility] HospitalComformerly [facility] on above:Performed By: #### 58829-0 #### [facility] [address] [place], [place] [address]WQC (Bld) [#/Vol]5.76 10*6/uLHigh4.30-5.70[facility] HospitalComment on above:Performed By: #### 16230-9 #### [facility] [place], [place] [address]THD (Bld) [#/Vol]6.5 10*3/uLNormal4.6-10.2[facility] HospitalComment on above:Performed By: #### 59043-9 #### [facility] [address] [place], [place] [address]Zsdgslkwv (Bld) [#/Vol]0.02 10*3/uLTrinity Health Basophils/100 WBC (Bld)0.3 %0.0 - 2.0 %[facility] HealthEosinophils (Bld) [#/Vol] 0.03 10*3/uLTrinity HealthEosinophils/100 WBC (Bld)0.5 %0.0 - 7.0 %[facility] HealthErythrocyte distribution width (RBC) [Ratio]11.8 %11.0 - 14.8 %[facility] HealthHematocrit (Bld) [Volume fraction]49.6 %High39.0 - 49.0 %[facility] Hemoglobin (Bld) [Mass/Vol]17.8 g/fAQebr35.5 - 17.5 g/dLTrinity HealthImmature granulocytes (Bld) [#/Vol]0.03 10*3/uLTrinity HealthImmature granulocytes/100 WBC (Bld)0.5 %0.0 - 1.2 %[facility] HealthInterpretation and review of laboratory resultsAbnormalTrinity HealthLymphocytes (Bld) [#/Vol]1.01 10*3/uLTrinity Health Lymphocytes/100 WBC (Bld)15.6 %Low17.9 - 49.6 %KeilaLehigh Valley Hospital - HazeltonH (RBC) [Entitic mass]30.9 pgTrinity HealthMCHC (RBC) [Mass/Vol]35.9 g/jSPnkd27.8 - 35.3 g/dL KeilaGeisinger-Lewistown HospitalMCV (RBC) [Entitic vol]86.1 fLTrinlancaster municipal hospital HealthMonocytes (Bld) [#/Vol]0.36 10*3/uLTrProcureNetworks HealthMonocytes/100 WBC (Bld)5.5 %0.0 - 12.0 %[facility] HealthNeutrophils (Bld) [#/Vol]5.04 10*3/uLTrencompass health rehabilitation hospital of sewickley HealthNeutrophils/100 WBC (Bld)77.6 %High38.1 - 75.5 %[facility] HealthPlatelet mean volume (Bld) [Entitic vol]11.3 fLTrinlancaster municipal hospital HealthPlatelets (Bld) [#/Vol]172 10*3/uLTrencompass health rehabilitation hospital of sewickley HealthRBC (Bld) [#/Vol]5.76 10*6/uLHighTrinlancaster municipal hospital HealthWBC (Bld) [#/Vol]6.5 10*3/[facility] HealthHepatic function 2000 panelon [id number] [Mass/Vol] 4.8 g/dL3.5 - 4.8 g/dLNaples HealthALP [Catalytic activity/Vol]67 U/LTrinity HealthALT [Catalytic activity/Vol]36 U/LTrinity HealthAST [Catalytic activity/Vol]25 U/LTrinity HealthBilirubin [Mass/Vol]0.7 mg/dL0.3 - 1.2 mg/dL Keila SubimageBilirubin.direct [Mass/Vol]0.1 mg/dLNINF - 0.5 mg/dLNaples Subimage Bilirubin.indirect [Mass/Vol]0.6 mg/dL0.0 - 1.0 mg/dLNaples HealthProtein [Mass/Vol]7.1 g/dL6.1 - 7.9 g/dLNaples SubimageLaboratory - Specimen information on [id number] source Nom (Unsp spec)Hold for add-ons.[facility] Subimage Comment on above:Auto resulted.Lipaseon [id number] [Catalytic activity/Vol]59 U/LTrinity HealthNo Panel Informationon [id number] Subimage Interpretation and review of laboratory resultsNormalTrinKindred Hospital PittsburghCBC AUTO DIFFon [id number] #0.0 103/ulNormal0.0-0.1The [facility] HospitalComment on above:Performed By: #### CMP, TSH, LIPID, T4 #### [facility] [address] [place] [address] Dr. Tristan ColeBasophils/100 WBC (Bld)0.5 %Normal0.2-2.0The [facility] Comment on above:Performed By: #### CMP, TSH, LIPID, T4 #### [facility] [address] [place] [address] Dr. Tristan Davalos #0.1 103/ulNormal0.0-0.7The [facility] HospitalComment on above: Performed By: #### CMP, TSH, LIPID, T4 #### [facility] [address] [place] [address] Dr. Tristan Baronosinophils/100 WBC (Bld)1.5 %Normal0.9-7.0The [facility] Comment on above:Performed By: #### CMP, TSH, LIPID, T4 #### [facility] [address] [place] [address] Dr. Tristan Baronrythrocyte distribution width (RBC) [Ratio]12.1 %Kduhoa32.0-15.0 The [facility] HospitalComment on above:Performed By: #### CMP, TSH, LIPID, T4 #### [facility] [address] [place] [address] Dr. Tristan ColeHematocrit (Bld) [Volume fraction]50.8 %Jnfwks21.0-54.0The [facility] HospitalComment on above:Performed By: #### CMP, TSH, LIPID, T4 #### [facility] [address] [place] [address] Dr. Tristan ColeHemoglobin (Bld) [Mass/Vol]17.3 g/yWLcffye49.0-18.0The [facility] HospitalComment on above:Performed By: #### CMP, TSH, LIPID, T4 #### [facility] [address] [place] [address] Dr. Tristan Cage #0.03 10e3/ulNormal0.00-0.03The [facility] Hospitalment on above:Performed By: #### CMP, TSH, LIPID, T4 #### [facility] [address] [place] [address] Dr. Tristan Cage %0.5 %Normal0.0-0.5The [facility] HospitalComformerly [facility] on above: Performed By: #### CMP, TSH, LIPID, T4 #### [facility] [address] [place] [address] Dr. Tristan Torrez #2.2 103/ulNormal1.2-3.8The [facility] HospitalComment on above:Performed By: #### CMP, TSH, LIPID, T4 #### [facility] [address] [place] [address] Dr. Tristan Dianahocytes/100 WBC (Bld)37.0 %Aduvia79.5-60.0The [facility] on above:Performed By: #### CMP, TSH, LIPID, T4 #### [facility] [address] [place] [address] Dr. Tristan BoschUAL DIFF REQNONormalThe [facility] HospitalComment on above: Performed By: #### CMP, TSH, LIPID, T4 #### [facility] [address] [place] [address] Dr. Tristan Brannon (RBC) [Entitic mass]30.8 svTycqwz32.9-34.0The [facility] on above:Performed By: #### CMP, TSH, LIPID, T4 #### [facility] [address] [place] [address] Dr. Tristan Brannon (RBC) [Mass/Vol]34.1 g/cHJfjldp34.9-35.2The [facility] on above:Performed By: #### CMP, TSH, LIPID, T4 #### [facility] [address] [place] [address] Dr. Tristan Brannon (RBC) [Entitic vol]90.6 dSWefeuh38.0-94.0The [facility] Hospitalment on above:Performed By: #### CMP, TSH, LIPID, T4 #### [facility] [address] [place] [address] Dr. Tristan Mahmood #0.6 103/ulNormal0.3-0.8The [facility] HospitalComment on above:Performed By: #### CMP, TSH, LIPID, T4 #### [facility] [address] [place] [address] Dr. Tristan Grafocytes/100 WBC (Bld)9.3 %Normal1.7-12.0The [facility] Comment on above:Performed By: #### CMP, TSH, LIPID, T4 #### [facility] [address] [place] [address] Dr. Tristan Braden #3.0 103/ulNormal1.4-6.5The [facility] Hospitalment on above:Performed By: #### CMP, TSH, LIPID, T4 #### [facility] [address] [place] [address] Dr. Tristan Sarabiautrophils/100 WBC (Bld)51.2 %Bizmem07.0-75.0The [facility] HospitalComment on above:Performed By: #### CMP, TSH, LIPID, T4 #### [facility] [address] [place] [address] Dr. Tristan Hernandez mean volume (Bld) [Entitic vol]10.9 fLNormal9.5-13.5The [facility] Hospitalment on above:Performed By: #### CMP, TSH, LIPID, T4 #### [facility] [address] [place] [address] Dr. Tristan ColePLT202 103/kbZbywpg487-943Xuj [facility] Hospitalment on above: Performed By: #### CMP, TSH, LIPID, T4 #### [facility] [address] [place] [address] Dr. Tristan ColeRBC5.61 106/ulNormal4.70-6.10The [facility] HospitalComment on above:Performed By: #### CMP, TSH, LIPID, T4 #### [facility] [address] [address] [address] Tristan ColeWBC5.9 103/ulNormal4.0-11.0The [facility] Hospitalment on above: Performed By: #### CMP, TSH, LIPID, T4 #### [facility] [address] [place] [address] Dr. Tristan AcevedoID PROFILEon [id number]-HDL RATIO NORMSEE BELOWGreen Cross HospitalComment on above:Result Comment: 3.3 - 4.4 LOW RISK 4.4 - 7.1 AVERAGE RISK 7.1 - 11.0 MODERATE RISK >11.0 HIGH RISKPerformed By: #### CMP, TSH, LIPID, T4 #### [facility] [address] [place] [address] Dr. Tristan Cainesterol [Mass/Vol]188 mg/dLNormal<=200The [facility] Comment on above:Performed By: #### CMP, TSH, LIPID, T4 #### [facility] [address] [place] [address] Dr. Tristan Cainesterol in HDL [Mass/Vol]40 mg/sUHdcabp74-10ZzqFort [facility] Hospital on above:Performed By: #### CMP, TSH, LIPID, T4 #### [facility] [address] [place] [address] Dr. Tristan ColeCholesterol in LDL [Mass/Vol]81.4 mg/dLGreen Cross HospitalComformerly [facility] on above:Performed By: #### CMP, TSH, LIPID, T4 #### [facility] [address] [place] [address] Dr. Tristan Sims.total/Cholesterol in HDL [Mass ratio]4.7 {ratio} NormalFort Hamilton Hospital on above:Performed By: #### CMP, TSH, LIPID, T4 #### [facility] [address] [place] [address] Dr. Tristan Shipman NORMAL> or = 60 mg/dl - LOW CARDIOVASCULAR RISK <40 mg/dl - HIGH CARDIOVASCULAR RISKPremier Health on above:Performed By: #### CMP, TSH, LIPID, T4 #### [facility] [address] [place] [address] Dr. Tristan Oro CALC NORMALSEE BELOWGreen Cross HospitalComformerly [facility] on above:Result Comment: <100 mg/dl OPTIMAL 100 - 129 mg/dl NEAR OR ABOVE OPTIMAL 130 - 159 mg/dl BORDERLINE HIGH 160 - 189 mg/dl HIGH >190 mg/dl VERY HIGH Performed By: #### CMP, TSH, LIPID, T4 #### [facility] [address] [place] [address] Dr. Tristan ColeTriglyceride [Mass/Vol]333 mg/dLCritically high<=150The [facility] on above:Performed By: #### CMP, TSH, LIPID, T4 #### [facility] [address] [place] [address] Dr. Tristan ColeVLDL CALC66.6 mg/dLNoOhioHealth Van Wert HospitalComformerly [facility] on above: Performed By: #### CMP, TSH, LIPID, T4 #### [facility] [address] [place] [address] Dr. Tristan ColePROTravis 14(COMP METB)on 27-30-0988Mfbujow [Mass/Vol]4.3 g/dLNormal 3.4-5.0The [facility] on above:Performed By: #### CMP, TSH, LIPID, T4 #### [facility] [address] [place] [address] Dr. Tristan ColeAlbumin/Globulin [Mass ratio]1.3 {ratio}NormalThe [facility] on above:Performed By: #### CMP, TSH, LIPID, T4 #### [facility] [address] [place] [address] Dr. Tristan Brown [Catalytic activity/Vol]59 U/AFhhbzp17-019Cex [facility] on above:Performed By: #### CMP, TSH, LIPID, T4 #### [facility] [address] [place] [address] Dr. Yilan ChangALT [Catalytic activity/Vol]46 U/DQkiawg46-33Vyp [facility] HospitalComment on above:Performed By: #### CMP, TSH, LIPID, T4 #### [facility] [address] [address] [address] Tristan ColeAnion gap [Moles/Vol]11.7 mmol/LNormalCincinnati Shriners Hospital Comment on above:Performed By: #### CMP, TSH, LIPID, T4 #### [facility] [address] [address] [address] Tristan ColeAST [Catalytic activity/Vol]19 U/NDdyybj63-31Mkx [facility] HospitalComment on above:Performed By: #### CMP, TSH, LIPID, T4 #### [facility] [address] [place] [address] Dr. Tristan ColeBilirubin [Mass/Vol]0.8 mg/dLNormal0.2-1.0[facility] Comment on above:Performed By: #### CMP, TSH, LIPID, T4 #### [facility] [address] [place] [address] Dr. Tristan ColeCalcium [Mass/Vol]9.3 mg/dLNormal8.5-10.1[facility] Comment on above:Performed By: #### CMP, TSH, LIPID, T4 #### [facility] [address] [place] [address] Dr. Tristan ColeChloride [Moles/Vol]101 mmol/FHujmfr72-369VvzCincinnati Shriners Hospital Comment on above:Performed By: #### CMP, TSH, LIPID, T4 #### [facility] [address] [place] [address] Dr. Tristan ColeCO2 [Moles/Vol]31.6 mmol/UXssrhh07.0-32.0The [facility] Comment on above:Performed By: #### CMP, TSH, LIPID, T4 #### [facility] [address] [place] [address] Dr. Tristan ColeCreatinine [Mass/Vol]1.02 mg/dLNormal0.70-1.30The [facility] HospitalComment on above:Performed By: #### CMP, TSH, LIPID, T4 #### [facility] [address] [address] [address] Tristan BaronGFR-AF SOMALI>60Normal>=60The [facility] HospitalComment on above:Performed By: #### CMP, TSH, LIPID, T4 #### [facility] [address] [place] [address] Dr. Tristan BaronGFR-NON AF SOMALI>60Normal>=60The [facility] HospitalComment on above:Performed By: #### CMP, TSH, LIPID, T4 #### [facility] [address] [place] [address] Dr. Tristan ColeGlobulin (S) [Mass/Vol]3.2 g/dLNormalThe [facility] HospitalComment on above:Performed By: #### CMP, TSH, LIPID, T4 #### [facility] [address] [place] [address] Dr. Tristan ColeGlucose [Mass/Vol]88 mg/aMYfpcnd17-192DoiCincinnati Shriners Hospital Comment on above:Performed By: #### CMP, TSH, LIPID, T4 #### [facility] [address] [place] [address] Dr. Tristan ColePotassium [Moles/Vol]4.3 mmol/LNormal3.5-5.1The [facility] Comment on above:Performed By: #### CMP, TSH, LIPID, T4 #### [facility] [address] [place] [address] Dr. Tristna ColeProtein [Mass/Vol]7.5 g/dLNormal6.4-8.2[facility] Comment on above:Performed By: #### CMP, TSH, LIPID, T4 #### [facility] [address] [place] [address] Dr. Tristan ColeSodium [Moles/Vol]140 mmol/LZqcsqz825-154EpdCincinnati Shriners Hospital Comment on above:Performed By: #### CMP, TSH, LIPID, T4 #### [facility] [address] [place] [address] Dr. Yilan ChangUrea nitrogen [Mass/Vol]20.0 mg/dLCritically high7.0-18.0[facility]riners HospitalComment on above:Performed By: #### CMP, TSH, LIPID, T4 #### [facility] [address] [place] [address] Dr. Tristan ColeUrea nitrogen/Creatinine [Mass ratio]19.6 mg/mgNoOhioHealth Van Wert HospitalComformerly [facility] on above:Performed By: #### CMP, TSH, LIPID, T4 #### [facility] [address] [place] [address] Dr. Trisatn Kunz4on [id number] [Mass/Vol]8.00 ug/dLNormal4.50-12.10The [facility] HospitalComformerly [facility] on above:Performed By: #### CMP, TSH, LIPID, T4 #### [facility] [address] [place] [address] Dr. Tristan Khan 37-48-7286PFF7.823 uIU/mLNormal0.358-3.740C[facility] HospitalComformerly [facility] on above:Performed By: #### CMP, TSH, LIPID, T4 #### [facility] [address] [place] [address] Dr. Tristan Hawkins [facility] HealthComformerly [facility] on above: Result Comment: <0.34 UIU/ml HYPERTHYROID 0.34-5.60 UIU/ml EUTHYROID >5.60 UIU/ml HYPOTHYROIDPerformed By: #### CMP, TSH, LIPID, T4 #### [facility] [address] [place] [address] Dr. Tristan Cole Vital Signs Date TimeVital SignValuePerforming NezcpkkxkTeonsgkf63-14-8027 08:26-0400Body .8 cmBriana VELEZ Work Phone: [facility]10-16-2025 08:26-0400Body mass index (BMI) [Ratio]27.84 kg/e3JlscprxBriana VELEZ Work Phone: [facility]10-16-2025 08:26-0400Body cwihse07 kgMatthew Nienberg PA Work Phone: [facility] Yefxlz43-24-4674 08:26-0400Diastolic blood cpzuxrnf26 mm[Hg]Briana Nienberg PA Work Phone: [facility] [employer] Dfqhep52-06-7914 08:26-0400Heart rate 63 /minMatthew Nienberg PA Work Phone: [facility] Subimage Svgjzd04-21-4650 08:26-0400 Respiratory rate16 /minMatthew Nienberg PA Work Phone: [facility] Iszaxq03-86-5291 08:26-1283LlI8% (BldA) [Mass fraction]96 %Briana Nienberg PA Work Phone: [facility] [employer] Ckptet47-55-8348 08:26-0400Systolic blood zyhrmhqz560 mm[Hg]Briana Nienberg PA Work Phone: [facility] [employer] Ivjxlh83-97-1836 09:38-0400Body .8 cmMatthew Nienberg PA Work Phone: [facility] Oqyjmb62-34-0186 09:38-0400Body mass index (BMI) [Ratio]28.27 kg/i4Qfvuhoo Nienberg PA Work Phone: [facility] [employer] Oecqqn35-54-8474 09:38-0400Body .36 kgMatthew Nienberg PA Work Phone: [facility] [employer] Ybexvt77-23-9250 09:38-0400Diastolic blood qqpgmvla61 mm[Hg]Briaan Nienberg PA Work Phone: [facility] Roqzvg68-76-6756 09:38-0400Heart rate 73 /minMatthew Nienberg PA Work Phone: [facility] Bhabad19-65-7513 09:38-0400 Respiratory rate18 /minMatthew Nienberg PA Work Phone: [facility]10-31-2024 09:38-1919AiM5% (BldA) [Mass fraction]98 %Briana VELEZ Work Phone: [facility]10-31-2024 09:38-0400Systolic blood kjrnpkdi839 mm[Hg]Briana VELEZ Work Phone: [facility]04-04-2024 10:55-0400Diastolic blood mm[Hg]Briana VELEZ Work Phone: [facility]04-04-2024 10:55-0400Heart rate 66 /minMatthew Chaparrita VELEZ Work Phone: [facility]04-04-2024 10:55-9787QwC5% (BldA) [Mass fraction]95 %Briana VELEZ Work Phone: [facility] [employer] Vphuhp39-98-6558 10:55-0400Systolic blood pqxofgfe844 mm[Hg]Briana VELEZ Work Phone: [facility]02-22-2024 10:33-0500Body .8 cmJarad Iqbal MD Work Phone: [facility]02-22-2024 10:33-0500Body mass index (BMI) [Ratio]29.41 kg/z0UycnaJarad Iqbal MD Work Phone: [facility] [employer] Yridjl94-44-2349 10:33-0500Body vdtdib36.99 kgJarad Iqbal MD Work Phone: [facility]02-22-2024 10:33-0500Diastolic blood hyhnxvdu78 mm[Hg]Jarad Iqbal MD Work Phone: [facility]02-22-2024 10:33-0500Heart rate 56 /minJarad Iqbal MD Work Phone: [facility]02-22-2024 10:33-0500Systolic blood mm[Hg]Jarad Iqbal MD Work Phone: [facility]01-23-2024 10:54-0500Body gyokaj199.8 cmMattsharriw Chaparrita PA Work Phone: [facility]01-23-2024 10:54-0500Body mass index (BMI) [Ratio]28.7 kg/m8Zckarrztae Cheatham PA Work Phone: [facility]01-23-2024 10:54-0500Body .72 kgMattsharriw Chaparrita PA Work Phone: [facility]01-23-2024 10:54-0500Diastolic blood ierdiofl84 mm[Hg]Briana VELEZ Work Phone: [facility]01-23-2024 10:54-0500Heart rate 55 /minMatthew Chaparrita VELEZ Work Phone: [facility]01-23-2024 10:54-0500 Respiratory rate18 /minMatthew Chaparrita PA Work Phone: [facility]01-23-2024 10:54-3128HwE9% (BldA) [Mass fraction]100 %Briana VELEZ Work Phone: [facility]01-23-2024 10:54-0500Systolic blood zzovidau316 mm[Hg]Briana VELEZ Work Phone: [facility]11-12-2022 08:11-0500Body .[address]12-2022 08:11-0500Body mass index (BMI) [Ratio]30.13 kg/m2No [address]12-2022 08:11-0500Body onudshklhhi11.39 [degF]No [address]12-2022 08:11-0500Body lnmaen94.[address]12-2022 08:11-0500Diastolic blood ttffrqeq73 mm[Hg]No [address] [address]-12-2022 08:11-0500Heart rate92 /minNo PhysicianTrinity Meedre60-71-1846 08:0500Respiratory rate20 /minNo PhysicianTrinity Fnvkkq84-23-2128 08:7092NgB3% (BldA) [Mass fraction]96 %No PhysicianTrinity Viydoh75-99-1257 08:0500Systolic blood xmbaubnr229 mm[Hg]No PhysicianTrinity Health Encounters Encounter DateEncounter TypeCare ProviderFacilityStart: 01-02-2025 End: 15-99-0057bebtwkfvwdUVQQPNJ [facility] HospitalStart: 12-27-2024 End: 11-43-2910pksiwzhzstULNYUZG E HOGANUniversity Hospitals Conne[facility] Center HospitalStart: 12-16-2024 End: 00-92-1924Qowulgmme encounterIris [facility] ClinicStart: 12-12-2024 End: 26-67-9339Cegtpx outpatient visit 25 minutesBriana VELEZ Work Phone: [facility] - Pain Management ClinicComment on above: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)Start: 12-12-2024 End: 25-94-9969dvwlnhhpwhUNDBHJB S NIENBERGUniversity Hospitals Conneaut [facility] Center HospitalStart: 12-05-2024 End: 56-17-1580ivmfhatjyoWQUBKKE EVANSProMedica Fremont HospitalStart: 11-07-2024 End: 90-89-0674zmpkixejwkIDFQIOH [facility] HospitalStart: 10-16-2024 End: 58-04-6248wvrxmusooyGPIGKCK [facility] HospitalStart: 09-13-2024 End: 07-55-3985blyrbjazwaJLDHJMX [facility] HospitalStart: 08-01-2024 End: 21-59-9960uwemrfotwcXYOYMUP EVANSProMedica Fremont HospitalStart: 07-11-2024 End: 68-72-1442uqftokxcweMCLYVVN EVANSProMedica Fremont HospitalStart: 06-20-2024 End: 42-41-1629lobebkjlguRWVKQXN [facility] Centertart: 02-08-2024 End: 12-62-8607xuetjwwmrvJCLUMYM S CHAPARRITALancaster Municipal Hospitaltart: 02-01-2024 End: 89-35-7499ypbgzashcgMWISRYXEisenhower Medical Centertart: 01-19-2024 End: 91-20-7099lzfymcqrerPEPJBGX E HOGANLancaster Municipal Hospitaltart: 12-28-2023 End: 30-78-8071Mqnfno outpatient visit 25 minutesBriana VELEZ Work Phone: [facility] ClinicComment on above: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 [facility] Start: 04-20-2023 End: 58-42-3163Mxtalm outpatient new 45 Kolby Iqbal MD Work Phone: [facility] NeuroSurgeryComment on above: Herniated cervical disc (Primary Dx); Cervical spondylosis; Cervical radiculopathyStart: 85-45-3198rjiooztjqlHSHAYJEHans P. Peterson Memorial Hospital Ambulatory PPGStart: 03-21-2023 End: 71-00-0805Qyeays outpatient visit 15 minutesBriana VELEZ Work Phone: [facility] Pain Management ClinicComment on above:Cervical spondylosis without myelopathy (Primary Dx) Start: 07-01-2022 End: 82-48-2944nacvwghhipSC DOUGLAS HOY .Facility:A8Hjlxy: 01-08-2022 End: 82-77-8919Obofpumgy department patient visitNO [facility]CP [facility]: 01[facility]08[facility]2022 End: 46-87-4088Aorldbhix department patient visitNo [facility] Emergency RoomComment on above:Nausea and vomiting, unspecified vomiting type (Primary Dx); Diarrhea, unspecified typeStart: 01-08-2022 End: 43-36-6830Ryibmttlse and management of inpatientNo [facility] Emergency RoomStart: 07-06-2021 End: 79-53-0660ildsxfxqnjSP ALFREDO JOHANSEN .Facility: Procedures DateProcedureProcedure DetailPerforming ClinicianStart: 62-49-3695GOP screening DR ALFREDO JOHANSEN .Comment on above:Performed By: #### CMP, TSH, LIPID, T4 #### [facility] [address] [place] [address] Dr. Tristan ColeStart: 18-08-4182Lzhtx metabolic panel calcium totalRonquincy valley medical centerapollo Neri [place] Work Phone: Start: 68-78-4069HXL W Auto Differential panel - Blood [facility] Healthbrandi Neri [place] Work Phone: Start: 28-88-8164MUXCD YELLOW PSTBerosalind Almaraz PokitDoks DO Work Phone: Start: 14-45-3196MOPAZYZW - EDTABerosalind Almaraz Hedges DO Work Phone: Start: 83-47-1510LVXGLIA DRAW Z4Oivljcyh J Hedges DO Work Phone: Start: 94-09-3617UNR - GOLDBerosalind Almaraz Hedges DO Work Phone: Start: 96-90-5317YUF screeningDR ALFREDO JOHANSEN .Comment on above:Performed By: #### PSASC #### [facility] [address] [place] [address] Dr. Tristan Cole Plan of Treatment DateCare ActivityDetailAuthorStart: 59-94-4592Dyyal BMI ScreeningAdult BMI ScreeningProMedina Hospitalca Health SystemStart: 78-31-4711Nziqhbp ScreeningTobacco ScreeningWhite Hospitalca Main [facility] SystemStart: 02-04-2025 End: 49-94-3979Kbaqakl encounter deocywctn26/09/2025 3:15 PM EST Office Visit [facility] [address] BABCOCKMISSOU[facility] DELTA MEDICAL [place] [address] Briana Cheatham, PA [address] [place] [address] [facility] ClinicStart: 12-27-2024 End: 80-05-7162Olwhayieu to same day surgery xgsrgd6112/27/2024 2:47 PM EDT - 12/27/2024 2:52 PM EDT Surgery [facility] rocedures [address] [place] [phone] Rolando Rajan MD [address] [place], [place] [id number] INJECTION SPINE TRANSFORAMINAL: right C34 [72207 (CPT )][facility] - Pain ProceduresComment on above:INJECTION SPINE TRANSFORAMINAL: right C34 [92658 (CPT )]Start: 12-27-2024 End: 21-66-3119Mfs anes&/strd w/img tfrml edrl crv/thrc 1 lvlINJECTION SPINE TRANSFORAMINAL Intervertebral disc stenosis of neural canal of cervical region 12/27/2024 2:47 PM EDTFREMONT PAINStart: 66-33-2092Fpzzhcquuy hospital visit by /31/2025 2:47 PM EDT Hospital Encounter [facility] [address] [place] [address] Rolando Rajan MD [address] [place] [address] [facility] Pain ProceduresStart: 48-66-5515Crytp BMI ScreeningAdult BMI ScreeningKettering Health Greene Memorial SystemStart: 40-20-0995Dwsnhys ScreeningTobacco ScreeningKettering Health Greene Memorial SystemStart: 89-60-3142SXVPM-19 Vaccine ( season)COVID-19 Vaccine ()[facility] SystemStart: 61-60-5719Eqqnxpjks vaccinationInfluenza VaccineKettering Health Greene Memorial SystemStart: 17-56-5987Liuenwo ScreeningTobacco ScreeningKettering Health Greene Memorial SystemStart: 44-80-9319Bqfrd BMI ScreeningAdult BMI ScreeningKettering Health Greene Memorial SystemStart: 49-53-4406Sdjjbrn ScreeningTobacco ScreeningKettering Health Greene Memorial SystemStart: 79-01-0384Dchns BMI ScreeningAdult BMI ScreeningKettering Health Greene Memorial SystemStart: 39-24-1511Cnamfwu ScreeningTobacco ScreeningKettering Health Greene Memorial SystemStart: 02-08-2024 End: 32-15-5571Dfsdjqz encounter cncdvbbib03/12/2024 1:15 PM EST Office Visit [facility] [address] [place] [address] Briana Cheatham PA [address] [place], [place] [id number] [facility] ClinicStart: 01-19-2024 End: 72-71-6460Buyujwcgc to same day surgery icmtpl3201/19/2024 3:21 PM EST - 01/19/2024 3:29 PM EST Surgery [facility] rocedures [address] [place] [address] Rolando Rajan MD [address] [place], [place] [id number] INJECTION SPINE TRANSFORAMINAL: right C34 [92550 (CPT )][facility] - Pain ProceduresComment on above:INJECTION SPINE TRANSFORAMINAL: right C34 [48605 (CPT )]Start: 01-19-2024 End: 19-80-9283Zjt anes&/strd w/img tfrml edrl crv/thrc 1 lvlINJECTION SPINE TRANSFORAMINAL Intervertebral disc stenosis of neural canal of cervical region 01/19/2024 3:21 PM ESTFREMONT PAINStart: 55-62-9588Eqzzkzmzny hospital visit by blpfxhvib98/22/2024 3:21 PM EST Hospital Encounter [facility] [address] [place] [phone] Rolando Rajan MD [address] [place], [place] [address] [facility] Pain ProceduresStart: 70-94-9895AVMUU-19 Vaccine ( season)COVID-19 Vaccine ( season)[facility]: 37-45-0552Ohtzltywf vaccinationInfluenza VaccineSt. Luke's Hospitaltart: 06-01-2023 End: 90-31-4577Ctneugs encounter swchwtsow36/04/2024 10:45 AM EDT Office Visit [facility] [address] [place] [phone] Briana Cheatham PA [address] [place] [address] [facility] Management ClinicStart: 14-02-0545MJRLW-19 Vaccine ( season)COVID-19 Vaccine ( season)[facility] Start: 80-25-1999Lumziixkb vaccinationInfluenza VaccineProMarion Hospital System Start: 24-30-4327Jbnmbecfea depression screening assessmentDepression Screening [facility] HospitalStart: 35-94-4318Aicscpyos C screeningHepatitis C ScreeningJeanes Hospital: 16-52-2185RSM screeningHIV ScreeningJeanes Hospital: 01-08-2022 Lipid panelCholesterol Screening (Lipid Panel)[facility]: 01-08-2022 Social Influencers of Health ScreeningSocial Influencers of Health Screening [facility]: 00-07-7071Mzpcwhtsy vaccinationInfluenza Vaccine (#1) [facility]: 03-11-3816QGESK-19 Vaccine (3 - Booster for Pfizer series) COVID-19 Vaccine (3 - Booster for Pfizer series)[facility]: 11-09-1998 DTaP,Tdap and Td Vaccines (1 - Tdap)DTaP,Tdap and Td Vaccines (1 - Tdap) [facility]: 01-97-0043MYeT,Tdap,and Td Vaccines (1 - Tdap) DTaP,Tdap,and Td Vaccines (1 - Tdap)[facility]: 81-91-5598Boijd BMI Follow Up PlanAdult BMI Follow Up PlanKettering Health Greene Memorial SystemStart: 1991 Depression ScreeningDepression ScreeningSt. Francis Hospital End: 87-38-3829EWP With NCVEMG With NCV Neurology Routine Paresthesias Right hand weakness 1 Occurrences starting 06/01/2023 until 05/31/2024[facility] Work Phone: Comment on above:1 Occurrences starting 06/01/2023 until 05/31/2024Njx anes&/strd w/img tfrml edrl crv/thrc 1 lvlINJECTION SPINE TRANSFORAMINAL Intervertebral disc stenosis of neural canal of cervical region [facility] Immunizations Immunization DateImmunizationNotesCare DywloyieDtgezzhx38-71-4058aexlneifq virus vaccine, unspecified formulationNo PhysicianTrinlancaster municipal hospital Health Payers DatePayer CategoryPayerPolicy [id number] - PPOANTHEM Member Subscriber Plan / Payer (Effective 2023-Present) Name: John Rosas Junior ID: [id number] Relation to Subscriber: Self Name: John Rosas Junior, III Payer ID: [id number] (NAIC) Type: Not on file Address: [address] [place] [id number] Health [id number] 84-04-0177Cclpzap Health InsuranceCIGNA CIGNA-OPEN ACCESS PLUS (OAP,OA PLUS) [id number] 2022-[facility] [phone] [address] [place] [id number]0-7454Dgpuahk 1.2.840.998153.1.13.502.2.7.3.295863.09810-75-4280Fjvzjhy40505294923108-18-8698 [id number] 2..1.042258.3.57[id number] 2.0.1.260570.3.57[id number] 2.0.1.306021.3.57[id number] 2.0.1.589426.3.57[id number] 2..1.347078.3.57[id number] 2.0.1.993075.3.57[id number] 2.0.1.456754.3.57[id number] 2.16840.1.561562.3.57[id number] 2.16.840.1.258346.3.57[id number] 2.840.1.114713.3.57[id number] 2.16840.1.627766.3.57[id number] 2.840.1.746769.3.57[id number] 2.840.1.341104.3.57[id number] 2.0.1.567329.3.57[id number] 2.840.1.963992.3.57[id number] 2.840.1.110756.3.57[id number] 2.840.1.420736.3.57[id number] 2.0.1.919108.3.579.2.224929-13-3120Daka-[id number] 2.840.1.1[id number] 2.0.1.746615.3.579.2.593 Social History DateTypeDetailFacilityStart: 01-08-2022 End: 69-76-6314Bycydut smoking status NHISNever smoked tobaccoNaples Health Start: 01-08-2022 End: 24-49-7284Pfbxqyg use and exposureSmokeless tobacco non-userTrinity Health Start: 01-08-2022 End: 61-89-8947Xrmxavo intakeCurrent drinker of alcohol (finding)[facility] Start: 39-61-3836Khntkvm CommentOccasional DrinkerTrinity HealthStart: 06-30-4556Iek Assigned At BirthNot on fileTrinlancaster municipal hospital HealthStart: 12-29-2021 End: 39-51-2710Rjvsohmh to SARS-CoV-2 (event)Not sureTrinity HealthStart: 07-03-2019 End: 04-44-4779Urplxcl of Social functionKettering Health Greene Memorial SystemStart: 07-03-2019 End: 12-43-6773Nymvnad Use Disorder Identification Test - Consumption [AUDIT-C] [facility] HospitalFrequency of Alcohol ConsumptionNot on [facility] SystemHow many standard drinks containing alcohol do you have on a typical day?1 or 2PUniversity Hospitals Portage [facility] SystemHow often do you have 6 or more drinks on 1 occasion?WeeklyKettering Health Greene Memorial SystemStart: 26-03-0611Slxxoj identity Identifies as male gender (finding)[facility] SystemStart: 00-67-4217Vwq Male (finding)[facility] HospitalHow often do you have 6 or more drinks on 1 occasion?NeverK[facility]tering Health Greene Memorial SystemStart: 60-15-6247Vtr assigned at birthMale [facility] SystemStart: 54-22-2526Trdxsz orientationHeterosexual (finding) [facility] Functional Status DateAssessmentResultFacilAdena [facility] Clinical Notes 01-08-2022 to 12-16-2024 Note Date & ObpbPimwNiuljwqr85-83-5676 Miscellaneous Notes* Telephone Encounter - Jaci Lowery RN - 12/16/2024 12:28 PM EDT Received clearance to hold jardiance x3 days for pain management procedure with MAC Valid 12/02/2024-03/02/2025 Needs scheduled, insurance auth * Telephone Encounter - Tayler Pena CNA - 12/16/2024 12:28 PM EDT John is scheduled 12/27. His last dose of Jardiance will be 12/23. documented in this encounterSt. Francis Hospital10-20-2025 Telephone encounter Note* Telephone Encounter - Jaci Lowery RN - 12/16/2024 12:28 PM EDT Received clearance to hold jardiance x3 days for pain management procedure with MAC Valid 12/02/2024-03/02/2025 Needs scheduled, insurance auth [facility]10-20-2025 Telephone encounter Note* Telephone Encounter - Tayler Pena CNA - 12/16/2024 12:28 PM EDT John is scheduled 12/27. His last dose of Jardiance will be 12/23. [facility]10-16-[facility] History of Present illness Narrative* AGUSTIN Allison - 12/12/2024 8:00 AM EDT [facility] [address] [place] [address] Patient: Jhon Rosas III Sex: male : 1980 Age: 44 y.o. PCP: ALFREDO JOHANSEN MD 12/12/2024 John Rosas III is here for a(n) follow up for neck pain. Patient had right C3,4 nerve rootinjection 01/19/2024 that provided 75-80% relief for 8-9 months. He states pain began to return gradually and intermittently. Chief Complaint Patient presents with Neck Pain HPI: NRIs with significant relief reported (07/29/2019, 09/06/2019, 01/31/2020) 01/13/2023 right C 3,4 nerve root injection with 75% relief 02/17/2023 Right C3/4 Nerve Root Injection with 90% relief x 1 week. Currently 75% relief still 01/19/2024 right C 3,4 nerve root injection with 75-80% relief for 8-9 months Neck Pain This is a chronic problem. The current episode started more than 1 year ago (2019 onset flared 11/2022). The problem occurs constantly. The problem has been gradually worsening. The pain is associated with nothing. The pain is present in the midline and right side (middle base of neck and right forarm, right shoulder and clavicle and scapula.). The quality of the pain is described as aching and stabbing (sharp, very achey). The pain is at a severity of 4/10 (up to 8/10). The pain is moderate (to severe). The symptoms are aggravated by position (neck extension or turning head to the right). The pain is Same all the time. Stiffness is present At night. Associated symptoms include chest pain (a nxiety and stress recently), headaches (daily), numbness (right thumb) and tingling (right thumb). Pertinent negatives include no fever, pain with swallowing, photophobia, visual change or weakness. Associated symptoms comments: Pt still feels like he has no hand grasp on right side. Difficult to hold on to things. He has tried acetaminophen, NSAIDs, ice, heat, home exercises, chiropractic manipulation and neck support (Nsaids x2 (motrin, Toradol, diflocenac), Tyl, Zanaflex ice/heat, neck brace.) for the symptoms. The treatment provided significant relief. The effect of pain on patient's ADLS: Moderate Impairment. Past Medical History: Diagnosis Date Anxiety Anxiety Back pain Bipolar affective ([facility] 2007? schizophrenia Chronic pain neck Chronic pain disorder Colitis Depression Fatty liver Heartburn Migraines Neck pain Peptic ulceration Suicide attempt ([facility]) Visual impairment Past Surgical History: Procedure Laterality Date CARDIAC CATHETERIZATION INJECTION CERVICAL OR THORACIC EPIDURAL BLOCK WITH STEROIDS: right C34 nerve root inj Right 07/29/2019 Performed by Rolando Rajan MD at [facility] INJECTION SPINE TRANSFORAMINAL: right C 3,4 Nroot Right 01/19/2024 Performed by Rolando Rajan MD at [facility] INJECTION SPINE TRANSFORAMINAL: right C 3,4 nroot Right 02/17/2023 Performed by Rolando Rajan MD at [facility] INJECTION SPINE TRANSFORAMINAL: right C 3,4 nroot Right 01/13/2023 Performed by Rolando Rajan MD at [facility] INJECTION STEROID EPI 2 WITH SEDATION: right R78lahwk Right 01/31/2020 Performed by Rolando Rajan MD at [facility] INJECTION STEROID EPI 2 WITH SEDATION: right J22wnohg Right 09/06/2019 Performed by Rolando Rajan MD at [facility] TYMPANOSTOMY TUBE PLACEMENT Bilateral as a child VASECTOMY Bilateral 2004 No Known Allergies Family History Problem Relation Age of Onset Diabetes Mother Back Problems Mother Anesthesia problems Mother mother had a siezure with ansthesia Social History Socioeconomic History Marital status: Spouse name: Not on file Number of children: Not on file Years of education: Not on file Highest education level: Not on file Occupational History Not on file Tobacco Use Smoking status: Never Smokeless tobacco: Never Vaping Use Vaping status: Never Used Substance and Sexual Activity Alcohol use: Yes Drug use: Never Sexual activity: Defer Other Topics Concern Not on file Social History Narrative Not on file Social Drivers of Health Financial Resource Strain: Not on file Food Insecurity: No Food Insecurity (12/12/2024) Hunger Screening Food Insecurity - Worry: Never True Food Insecurity - Inability: Never True Transportation Needs: Not on file Physical Activity: Not on file Stress: Not on file Social Connections: Not on file Interpersonal Safety: Not on file Housing Instability: Not on file Review of Systems Constitutional: Negative for fever. Eyes: Negative for photophobia. Respiratory: Negative. Cardiovascular: Positive for chest pain (anxiety and stress recently). Gastrointestinal: Negative for constipation and diarrhea. Genitourinary: Negative. Musculoskeletal: Positive for neck pain. Skin: Negative. Neurological: Positive for tingling (right thumb), numbness (right thumb) and headaches (daily). Negative for weakness. Psychiatric/Behavioral: Negative. Vital Signs: BP 128/86 Pulse 63 Resp 16 Ht 177.8 cm (5' 10 ) Wt 88 kg (194 lb) SpO2 96% BMI 27.84 kg/m Physical Exam: GENERAL - Healthy patient that appears stated age. HEENT - Normocephalic / Atraumatic, Extraoccular movements intact, trachea midline, thyroid within normal limits. CV - pulse regular, Warm extremities with appropriate color of nailbeds. RESP - No obvious wheezing, No Shortness of Breath, No overexertion response to exam maneuvers. COORDINATION - remains intact. PSYCH - Alert and Oriented x4, Attentive and appropriate, constitutionally normal, displays normal mood and affect per situation, answered questions appropriately during examination, demonstrated appropriate attention during discussion, demonstrated appropriate cognitive reasoning and understandingof the medical condition by asking appropriate questions regarding the diagnosis and risks/benefits/alternatives of treatment modalities. No obvious deficits in memory, reasoning, or intellect. Cervical: SKIN - No rashes or bruising in the area of the patient s pain. LYMPH NODES - demonstrate no obvious enlargement. EXTREMITIES - Upper extremities are warm, with minimal edema and palpable pulses Tenderness to palpation noted in the cervical spine and paraspinal musculature. Pain is elicited with flexion, extension, and lateral rotation of the cervical spine. Range of motion is diminished with these motions due to pain. Facet palpation is noted to be somewhat tender but not concordant with the patient s normal pain complaints. STRENGTH - noted to be 5 out of 5 all muscle groups bilateral upper extremities including muscles involving shoulder flexion and abduction, elbow flexion and extension, as well as wrist flexion and extension and intrinsic muscles of the hand. No notable atrophy, fasciculations or spasm. SENSORY - No notable sensory deficits in the bilateral upper extremities to touch or pinprick in all dermatomal distributions with exception to decreased sensation in the Right C4 dermatomal distribution(s). Spurlings sign is Positive Assessment/Treatment Plan: John was seen today for neck pain. Diagnoses and all orders for this visit: Intervertebral disc stenosis of neural canal of cervical region - Case request operating room: INJECTION SPINE TRANSFORAMINAL: right C34 Right C3, C4 Nerve Root Injection - under fluoroscopy with the use of contrast dye (unless contraindicated) It is hopeful that the described procedure will provide symptomatic pain relief. It is felt to be medically necessary noting that the patient has tried and failed more conservative modalities of therapy and this is the next most appropriate step. The procedure was described in detail to the patientas well as the potential benefits of pain reduction alongside risks of the procedure and alternatives. Risks were described as including, but not limited to bleeding, infection, nerve damage, spinal cord injury, paralysis, stroke, dural puncture headache, and medication reaction. The patient expressed understanding regarding the risks and benefits and wishes to proceed. It was explained that Nerve Root Injections and Transforaminal Epidural Injections often require a series of 2-3 before significant relief is noted, but we will determine after each injection if another one is indicated. Depending on the amount and duration of relief obtained from the injection, additional modalities of therapy including medications and physical therapy may need to be utilized alongside or following the injections. The patient would like to continue receiving epidural injections as they provide 50% or more reliefwith sustained improvement in both pain and physical function after the injection lasting for a minimum of three months. Patient is a surgery candidate but is not interested in pursuing surgery at this time. Follow up 2 weeks after procedure The medications I have prescribed have been reviewed for medication interactions/contraindications and/or for upcoming procedures: continue current medication regimen without any changes. DISCUSSION: Treatment options discussed with patient and all questions answered to patient's satisfaction. Discussed the rules and regulations surrounding prescription of opioids and compliance at length. Failure to follow the rules and regulation will result in tapering and discontinuation of medications if applicable. Prescribed medication that requires intensive monitoring for toxicity We do not currently prescribeany controlled substance from this practice. It is noted that the patient did have good response from the previously performed procedure. It is felt that the patient would benefit from an additional procedure of the same nature in that the samesymptoms have returned. It is hopeful that this additional injection will provide additional benefit and duration when combined with the previous injection. The spine model was demonstrated and MRI was reviewed and used to explain the condition. Chronic conditions not treated during this visit that affected my overall medical decision making: Comorbidity- Diabetes The patient has a history of diabetes mellitus currently managed with medications. This will need to be considered prior to any procedure that would require the injection of steroid in that the patient may experience a transient increase in glucose as a result. Additional consideration will need leila given to timing the procedure early in the morning in that the patient will need to be fasting prior to the administration of anesthesia. Every effort will be made to perform the procedure as a 1st case due to this condition. And the patient will be instructed to hold their diabetic medications on that morning. If necessary, a blood glucose test can also be performed that morning. The risks/ benefits/ and alternatives will be weighed and explained to the patient prior to any procedure. Comorbidity- Depression The patient has an ongoing issue with depression and currently feels these symptoms are under control and further feels that appropriate pain management would also help these symptoms. The patient isoptimistic about the treatment plan we have laid out. We will continue to monitor these symptoms and remain cogniscent that they may affect the patients perceived improvement from the treatment and willingness to pursue further treatment. At this time the patient appears to be mentally and emotionally stable to undergo procedural and medical therapy. If any warning signs become present, I may refer the patient to a mental health professional for further evaluation. OARRS: Reviewed. Scribe Statement: I, Halina Lantigua CNA, scribed for and in the presence of AGUSTIN ALLISON who performed the above service. Halina Lantigua CNA 12/12/24 0916 AGUSTIN Allison 12/12/24 1212 documented in this encounterWhite River Junction Va Medical CenterARC [facility] Devices10-16-2025 Instructions* Patient Instructions* Halina Lantigua CNA - 12/12/2024 8:00 AM EDT Epidural Steroid Injection (MIKAYLA) / Nerve Root Injection / Nerve Block These procedure(s) involve the injection of a steroid and anesthetic into the epidural space or thenerve sheath that is both diagnostic and potentially therapeutic for alleviating discomfort of the legs and arms secondary to compression of the respective nerves due to bulging discs, bone spurs andother potential causes. Steroids are potent anti-inflammatory drugs that act to decrease the swollen and inflamed nerves thus relieving your clinical symptoms. How Long Will This Procedure Last? The extent and duration of pain relief may depend on the amount of inflammation and how many areas are involved. Other coexisting factors may be responsible for your pain. You and your physician will discuss expected results of procedure(s). After Your Injection You may experience soreness and tenderness at the area of treatment. This pain may not occur until later today after the numbing medicine wears off. The steroid can take 3-5 days to work and provide noticeable improvement. Activity You may feel temporary numbness, weakness or tingling: In the neck, arm, or fingertips (if your procedure was done in your neck) In the legs (if your procedure was done in your lower back) These symptoms are normal, and should subside within 3-4 hours. In that time, be careful to avoid falls. As a safety precaution, you must have a local bulk driver after a lumbar nerve root injection, even if you do not receive sedation. Resume activity as tolerated when function has returned. Medications Resume your routine medications after your procedure. You may resume blood thinners per your regular schedule after the procedure. If you received sedation: If you received sedation for your procedure, you may feel sleepy or not yourself for several hours today. For the next 24 hours avoid activities that requires alertness or coordination. This includes: Driving or operating heavy machinery Using power tools Consuming alcohol Do not make important or complex decisions or sign legal documents in the next 24 hours. Other Instructions: If you feel severe pain at the injection site with swelling and redness, increased leg weakness, a fever of 101 or higher, headache (or worsening headache), changes in vision or urinary retention: Please call the office at , or have someone take you to the nearest emergency room. Tellthe emergency room staff that you recently had a spine injection. A doctor must evaluate you for bleeding and injection complications. If you lose control over bowel, bladder, or legs: Go to the nearest emergency room. If you are diabetic, the steroids used in this procedure can increase your blood sugar. If your blood sugar is 250mg/dL or higher, contact your primary care physician, or the doctor who manages your diabetes, to discuss how to get it back to normal. documented in this encounterWhite HospitalBag of Ice Beaumont [id number] History of Present illness Narrative* AGUSTIN Allison - 12/28/2023 9:30 AM EDT [facility] [address] [place] [address] Patient: John Rosas III Sex: male : 1980 Age: 43 y.o. PCP: ALFREDO JOHANSEN MD 12/28/2023 John Rosas III is here for a(n) follow up for increased neck pain. He reports he has had good relief of his neck pain from last C3,4 Nerve root done 12/22/23 until recently. Chief Complaint Patient presents with Neck Pain HPI: NRIs with significant relief reported (07/29/2019, 09/06/2019, 01/31/2020) 01/13/2023 right C 3,4 nerve root injection with 75% relief 02/17/2023 Right C3/4 Nerve Root Injection with 90% relief x 1 week. Currently 75% relief still Neck Pain This is a new problem. The current episode started more than 1 year ago (2019 onset flared 11/2022). The problem occurs constantly. The problem has been unchanged. The pain is associated with nothing. The pain is present in the midline and right side (middle base of neck and right forarm). Quality:Pain to right shoulder, numbness to right forearm. The pain is at a severity of 4/10. The pain is mild. The symptoms are aggravated by position (movement of neck (nodding, shaking head)). The pain isSame all the time. Stiffness is present At night. Associated symptoms include headaches (1x week), numbness (right hand), tingling (right hand) and weakness (right arm and hand). Pertinent negatives i nclude no chest pain (anxiety and stress recently), fever, pain with swallowing, photophobia or visual change. Associated symptoms comments: Pt still feels like he has no hand grasp on right side. Difficult to hold on to things. He has tried acetaminophen, NSAIDs, ice, heat, home exercises, chiropractic manipulation and neck support (Nsaids x2 (motrin, Toradol, diflocenac), Tyl, Zanaflex ice/heat, neck brace.) for the symptoms. The treatment provided significant relief. The effect of pain on patient's ADLS: Moderate Impairment. Past Medical History: Diagnosis Date Anxiety Anxiety Back pain Bipolar affective ([facility]) 2007? schizophrenia Chronic pain neck Chronic pain disorder Colitis Depression Fatty liver Heartburn Migraines Neck pain Peptic ulceration Suicide attempt ([facility] Visual impairment Past Surgical History: Procedure Laterality Date CARDIAC CATHETERIZATION INJECTION CERVICAL OR THORACIC EPIDURAL BLOCK WITH STEROIDS: right C34 nerve root inj Right 07/29/2019 Performed by Rolando Rajan MD at [facility] SPINE TRANSFORAMINAL: right C 3,4 nroot Right 02/17/2023 Performed by Rolando Rajan MD at [facility] SPINE TRANSFORAMINAL: right C 3,4 nroot Right 01/13/2023 Performed by Rolando Rajan MD at [facility] INJECTION STEROID EPI 2 WITH SEDATION: right [id number] Right 01/31/2020 Performed by Rolando Rajan MD at [facility] STEROID EPI 2 WITH SEDATION: right [id number] Right 09/06/2019 Performed by Rolando Rajan MD at [facility] TYMPANOSTOMY TUBE PLACEMENT Bilateral as a child VASECTOMY Bilateral 2004 No Known Allergies Family History Problem Relation Age of Onset Diabetes Mother Back Problems Mother Anesthesia problems Mother mother had a siezure with ansthesia Social History Socioeconomic History Marital status: Spouse name: Not on file Number of children: Not on file Years of education: Not on file Highest education level: Not on file Occupational History Not on file Tobacco Use Smoking status: Never Smokeless tobacco: Never Vaping Use Vaping status: Never Used Substance and Sexual Activity Alcohol use: Yes Drug use: Never Sexual activity: Defer Other Topics Concern Not on file Social History Narrative Not on file Social Drivers of Health Financial Resource Strain: Not on file Food Insecurity: No Food Insecurity (12/28/2023) Hunger Screening Food Insecurity - Worry: Never True Food Insecurity - Inability: Never True Transportation Needs: Not on file Physical Activity: Not on file Stress: Not on file Social Connections: Not on file Interpersonal Safety: Not on file Housing Instability: Not on file Review of Systems Constitutional: Negative. Negative for chills, fatigue and fever. HENT: Negative. Negative for congestion. Eyes: Negative. Negative for photophobia. Respiratory: Negative. Negative for cough and shortness of breath. Cardiovascular: Negative. Negative for chest pain (anxiety and stress recently). Gastrointestinal: Negative. Negative for abdominal pain. Musculoskeletal: Positive for neck pain and neck stiffness. Negative for gait problem. Skin: Negative for rash and wound. Neurological: Positive for tingling (right hand), weakness (right arm and hand), numbness (right hand) and headaches (1x week). Hematological: Negative. Does not bruise/bleed easily. Psychiatric/Behavioral: Negative. Negative for self-injury and suicidal ideas. Vital Signs: BP (!) 124/95 Pulse 73 Resp 18 Ht 177.8 cm (5' 10 ) Wt 89.4 kg (197 lb) SpO2 98% BMI 28.27 kg/m Physical Exam: GENERAL - Healthy patient that appears stated age. HEENT - Normocephalic / Atraumatic, Extraoccular movements intact, trachea midline, thyroid within normal limits. CV - pulse regular, Warm extremities with appropriate color of nailbeds. RESP - No obvious wheezing, No Shortness of Breath, No overexertion response to exam maneuvers. COORDINATION - remains intact. PSYCH - Alert and Oriented x4, Attentive and appropriate, constitutionally normal, displays normal mood and affect per situation, answered questions appropriately during examination, demonstrated appropriate attention during discussion, demonstrated appropriate cognitive reasoning and understandingof the medical condition by asking appropriate questions regarding the diagnosis and risks/benefits/alternatives of treatment modalities. No obvious deficits in memory, reasoning, or intellect. Cervical: SKIN - No rashes or bruising in the area of the patient s pain. LYMPH NODES - demonstrate no obvious enlargement. EXTREMITIES - Upper extremities are warm, with minimal edema and palpable pulses Tenderness to palpation noted in the cervical spine and paraspinal musculature. Pain is elicited with flexion, extension, and lateral rotation of the cervical spine. Range of motion is diminished with these motions due to pain. Facet palpation is noted to be somewhat tender but not concordant with the patient s normal pain complaints. STRENGTH - noted to be 5 out of 5 all muscle groups bilateral upper extremities including muscles involving shoulder flexion and abduction, elbow flexion and extension, as well as wrist flexion and extension and intrinsic muscles of the hand. No notable atrophy, fasciculations or spasm. SENSORY - No notable sensory deficits in the bilateral upper extremities to touch or pinprick in all dermatomal distributions with exception to decreased sensation in the Right C4 dermatomal distribution(s). Spurlings sign is Positive Assessment/Treatment Plan: John was seen today for neck pain. Diagnoses and all orders for this visit: Intervertebral disc stenosis of neural canal of cervical region - Case request operating room: INJECTION SPINE TRANSFORAMINAL: right C34 Right C3,4 Nerve Root Injection - under fluoroscopy with the use of contrast dye (unless contraindicated) It is hopeful that the described procedure will provide symptomatic pain relief. It is felt to be medically necessary noting that the patient has tried and failed more conservative modalities of therapy and this is the next most appropriate step. The procedure was described in detail to the patientas well as the potential benefits of pain reduction alongside risks of the procedure and alternatives. Risks were described as including, but not limited to bleeding, infection, nerve damage, spinal cord injury, paralysis, stroke, dural puncture headache, and medication reaction. The patient expressed understanding regarding the risks and benefits and wishes to proceed. It was explained that Nerve Root Injections and Transforaminal Epidural Injections often require a series of 2-3 before significant relief is noted, but we will determine after each injection if another one is indicated. Depending on the amount and duration of relief obtained from the injection, additional modalities of therapy including medications and physical therapy may need to be utilized alongside or following the injections. Follow up 2 weeks after procedure The medications prescribed have been reviewed for medication interactions/contraindications and/or for upcoming procedures: continue current medication regimen without any changes. DISCUSSION: Treatment options discussed with patient and all questions answered to patient's satisfaction. Discussed the rules and regulations surrounding prescription of opioids and compliance at length. Failure to follow the rules and regulation will result in tapering and discontinuation of medications if applicable. Prescribed medication that requires intensive monitoring for toxicity We do not currently prescribeany controlled substance from this practice. It is noted that the patient did have good response from the previously performed procedure. It is felt that the patient would benefit from an additional procedure of the same nature in that the samesymptoms have returned. It is hopeful that this additional injection will provide additional benefit and duration when combined with the previous injection. The spine model was demonstrated and MRI was reviewed and used to explain the condition. Chronic conditions not treated during this visit that affected my overall medical decision making: Comorbidity- Diabetes The patient has a history of diabetes mellitus currently managed with medications. This will need to be considered prior to any procedure that would require the injection of steroid in that the patient may experience a transient increase in glucose as a result. Additional consideration will need leila given to timing the procedure early in the morning in that the patient will need to be fasting prior to the administration of anesthesia. Every effort will be made to perform the procedure as a 1st case due to this condition. And the patient will be instructed to hold their diabetic medications on that morning. If necessary, a blood glucose test can also be performed that morning. The risks/ benefits/ and alternatives will be weighed and explained to the patient prior to any procedure. OARRS: Reviewed. Scribe Statement: Scribed for and in the presence of AGUSTIN ALLISON by Halina Lantigua CNA. Provider Statement: IBRIANA PA, personally performed the services described in the documentation, as scribed by Halina Lantigua CNA in my presence, and it is both accurate and complete. Halina Lantigua CNA 12/28/23 1011 AGUSTIN Allison 12/28/23 1017 documented in this encounterWhite HospitalGhz Technology [id number] Instructions* Patient Instructions* Halina Lantigua CNA - 12/28/2023 9:30 AM EDT Epidural Steroid Injection (MIKAYLA) / Nerve Root Injection / Nerve Block These procedure(s) involve the injection of a steroid and anesthetic into the epidural space or thenerve sheath that is both diagnostic and potentially therapeutic for alleviating discomfort of the legs and arms secondary to compression of the respective nerves due to bulging discs, bone spurs andother potential causes. Steroids are potent anti-inflammatory drugs that act to decrease the swollen and inflamed nerves thus relieving your clinical symptoms. How Long Will This Procedure Last? The extent and duration of pain relief may depend on the amount of inflammation and how many areas are involved. Other coexisting factors may be responsible for your pain. You and your physician will discuss expected results of procedure(s). After Your Injection You may experience soreness and tenderness at the area of treatment. This pain may not occur until later today after the numbing medicine wears off. The steroid can take 3-5 days to work and provide noticeable improvement. Activity You may feel temporary numbness, weakness or tingling: In the neck, arm, or fingertips (if your procedure was done in your neck) In the legs (if your procedure was done in your lower back) These symptoms are normal, and should subside within 3-4 hours. In that time, be careful to avoid falls. As a safety precaution, you must have a local bulk driver after a lumbar nerve root injection, even if you do not receive sedation. Resume activity as tolerated when function has returned. Medications Resume your routine medications after your procedure. You may resume blood thinners per your regular schedule after the procedure. If you received sedation: If you received sedation for your procedure, you may feel sleepy or not yourself for several hours today. For the next 24 hours avoid activities that requires alertness or coordination. This includes: Driving or operating heavy machinery Using power tools Consuming alcohol Do not make important or complex decisions or sign legal documents in the next 24 hours. Other Instructions: If you feel severe pain at the injection site with swelling and redness, increased leg weakness, a fever of 101 or higher, headache (or worsening headache), changes in vision or urinary retention: Please call the office at , or have someone take you to the nearest emergency room. Tellthe emergency room staff that you recently had a spine injection. A doctor must evaluate you for bleeding and injection complications. If you lose control over bowel, bladder, or legs: Go to the nearest emergency room. If you are diabetic, the steroids used in this procedure can increase your blood sugar. If your blood sugar is 250mg/dL or higher, contact your primary care physician, or the doctor who manages your diabetes, to discuss how to get it back to normal. documented in this encounterSt. [facility] Hospital04-[facility] History of Present illness Narrative* AGUSTIN Allison - 06/01/2023 10:45 AM EDT [facility] [address] [place] [address] Patient: John Rosas III Sex: male : 1980 Age: 42 y.o. PCP: ALFREDO JOHANSEN MD 06/01/2023 John Rosas III is here for a 3 month follow up. He reports he saw a neurosurgeon and he recommends PT and/or Cervical nerve root injections prior to surgery. His worst symptom is numbness, tingling, hand pain and weakness on the right. Chief Complaint Patient presents with Neck Pain HPI: NRIs with significant relief reported (07/29/2019, 09/06/2019, 01/31/2020) 01/13/2023 right C 3,4 nerve root injection with 75% relief 02/17/2023 Right C3/4 Nerve Root Injection with 90% relief x 1 week. Currently 75% relief still Neck Pain This is a new problem. The current episode started more than 1 year ago (2019 onset flared 11/2022). The problem occurs constantly. The problem has been unchanged. The pain is associated with nothing. The pain is present in the midline and right side (middle base of neck). Quality: Pain to right shoulder, numbness to right forearm. The pain is at a severity of 1/10. The pain is mild. The symptomsare aggravated by position (movement of neck (nodding, shaking head)). The pain is Same all the time. Stiffness is present At night. Associated symptoms include headaches (1x week), numbness (right hand), tingling (right hand) and weakness (right arm and hand). Pertinent negatives include no chest p ain (anxiety and stress recently), fever, pain with swallowing, photophobia or visual change. Associated symptoms comments: Pt still feels like he has no hand grasp on right side. Difficult to hold on to things. He has tried acetaminophen, NSAIDs, ice, heat, home exercises, chiropractic manipulation and neck support (Nsaids x2 (motrin, Toradol, diflocenac), Tyl, Zanaflex ice/heat, neck brace.) for the symptoms. The treatment provided significant relief. The effect of pain on patient's ADLS: Mild Impairment. Past Medical History: Diagnosis Date Anxiety Anxiety Back pain Bipolar affective ([facility] 2007? schizophrenia Chronic pain neck Chronic pain disorder Colitis Depression Fatty liver Heartburn Migraines Neck pain Peptic ulceration Suicide attempt ([facility]) Visual impairment Past Surgical History: Procedure Laterality Date CARDIAC CATHETERIZATION INJECTION CERVICAL OR THORACIC EPIDURAL BLOCK WITH STEROIDS: right C34 nerve root inj Right 07/29/2019 Performed by Rolando Rajan MD at [facility] SPINE TRANSFORAMINAL: right C 3,4 nroot Right 02/17/2023 Performed by Rolando Rajan MD at [facility] INJECTION SPINE TRANSFORAMINAL: right C 3,4 nroot Right 01/13/2023 Performed by Rolando Rajan MD at [facility] INJECTION STEROID EPI 2 WITH SEDATION: right [id number] Right 01/31/2020 Performed by Rolando Rajan MD at [facility] STEROID EPI 2 WITH SEDATION: right [id number] Right 09/06/2019 Performed by Rolando Rajan MD at [facility] TYMPANOSTOMY TUBE PLACEMENT Bilateral as a child VASECTOMY Bilateral 2004 No Known Allergies Family History Problem Relation Age of Onset Diabetes Mother Back Problems Mother Anesthesia problems Mother mother had a siezure with ansthesia Social History Socioeconomic History Marital status: Spouse name: Not on file Number of children: Not on file Years of education: Not on file Highest education level: Not on file Occupational History Not on file Tobacco Use Smoking status: Never Smokeless tobacco: Never Vaping Use Vaping Use: Never used Substance and Sexual Activity Alcohol use: Yes Drug use: Never Sexual activity: Defer Other Topics Concern Not on file Social History Narrative Not on file Social Determinants of Health Financial Resource Strain: Not on file Food Insecurity: No Food Insecurity (06/01/2023) Hunger Screening Food Insecurity - Worry: Never True Food Insecurity - Inability: Never True Transportation Needs: Not on file Physical Activity: Not on file Stress: Not on file Social Connections: Not on file Interpersonal Safety: Not on file Housing Instability: Not on file Review of Systems Constitutional: Negative for chills and fever. HENT: Negative for congestion, rhinorrhea and sore throat. Eyes: Negative for photophobia. Respiratory: Negative for cough and shortness of breath. Cardiovascular: Negative for chest pain (anxiety and stress recently). Gastrointestinal: Negative for abdominal pain, nausea and vomiting. Musculoskeletal: Positive for neck pain. Skin: Negative. Neurological: Positive for tingling (right hand), weakness (right arm and hand), numbness (right hand) and headaches (1x week). Psychiatric/Behavioral: Negative. Vital Signs: BP 129/88 (BP Site: Left Arm, BP Postition: Sitting) Pulse 66 SpO2 95% Physical Exam: GENERAL - Healthy patient that appears stated age. HEENT - Normocephalic / Atraumatic, Extraoccular movements intact, trachea midline, thyroid within normal limits. CV - pulse regular, Warm extremities with appropriate color of nailbeds. RESP - No obvious wheezing, No Shortness of Breath, No overexertion response to exam maneuvers. COORDINATION - remains intact. PSYCH - Alert and Oriented x4, Attentive and appropriate, constitutionally normal, displays normal mood and affect per situation, answered questions appropriately during examination, demonstrated appropriate attention during discussion, demonstrated appropriate cognitive reasoning and understandingof the medical condition by asking appropriate questions regarding the diagnosis and risks/benefits/alternatives of treatment modalities. No obvious deficits in memory, reasoning, or intellect. Cervical: SKIN - No rashes or bruising in the area of the patient s pain. LYMPH NODES - demonstrate no obvious enlargement. EXTREMITIES - Upper extremities are warm, with minimal edema and palpable pulses Tenderness to palpation noted in the cervical spine and paraspinal musculature. Pain is elicited with flexion, extension, and lateral rotation of the cervical spine. Range of motion is diminished with these motions due to pain. Facet palpation is noted to be somewhat tender but not concordant with the patient s normal pain complaints. STRENGTH - noted to be 5 out of 5 all muscle groups bilateral upper extremities including muscles involving shoulder flexion and abduction, elbow flexion and extension, as well as wrist flexion and extension and intrinsic muscles of the hand. No notable atrophy, fasciculations or spasm. SENSORY - No notable sensory deficits in the bilateral upper extremities to touch or pinprick in all dermatomal distributions with exception to decreased sensation in the Right C6 dermatomal distribution(s). Spurlings sign is Positive Assessment/Treatment Plan: John was seen today for neck pain. Diagnoses and all orders for this visit: Cervical disc displacement Paresthesias - EMG With NCV; Future Right hand weakness - EMG With NCV; Future Right Upper extremity EMG Imaging/Diagnostic Testing - It is felt that additional diagnostic testing is necessary to further evaluate the patients currentpain pathology. For this reason, we will order additional imaging/diagnostic testing noted above. It is hopeful that this study will identify a significant pain generator that will be amenable to therapy. It is felt that this modality is necessary due to the severity and chronicity of symptoms and physical exam findings combined with the lack of recent imaging/diagnostic testing of the area. Follow up after EMG The medications prescribed have been reviewed for medication interactions/contraindications and/or for upcoming procedures: continue current medication regimen without any changes. DISCUSSION: Treatment options discussed with patient and all questions answered to patient's satisfaction. Discussed the rules and regulations surrounding prescription of opioids and compliance at length. Failure to follow the rules and regulation will result in tapering and discontinuation of medications if applicable. Prescribed medication that requires intensive monitoring for toxicity We do not currently prescribeany controlled substance from this practice. Treatment plans discussed but not opted for at this time: Right C5, 6 Nerve root injection. Patient would like to proceed with the current outlined treatmentplan before moving forward with any other options. The spine model was demonstrated and MRI was reviewed and used to explain the condition. Chronic conditions not treated during this visit that affected my overall medical decision making: Diabetes OARRS: Reviewed. Scribe Statement: Scribed for and in the presence of AGUSTIN ALLISON by Halina Lantigua CNA. Provider Statement: I, AGUSTIN ALLISON, personally performed the services described in the documentation, as scribed by Halina Lantigua CNA in my presence, and it is both accurate and complete. 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 He says nice change. Has a numb area on the rigth side - by the forearm - alo9ng the thumb side. Some pain near the base of the neck - right side. Also was having pain in the neck - back in 2019 - where he could barely sit up. He had nerve root injuections - that helped a lot - that was through COVID. Then a few years later he felt a pop in his neck - things just went down hill. He saw Dr. Satinder cristina injections. No left arm symptoms. He only eats and writes with his left hand - everything else is right hand work. The pain now is pretty significant. He has to be careful about what he does or it can flair the pain. The pain was pretty bad in Jan 2023. He did not have therapy for his neck. ROS: As above Past Medical History: Diagnosis Date Anxiety Anxiety Back pain Bipolar affective ([facility]) 2007? schizophrenia Chronic pain neck Chronic pain disorder Colitis Depression Fatty liver Heartburn Migraines Neck pain Peptic ulceration Suicide attempt ([facility]) Visual impairment Past Surgical History: Procedure Laterality Date CARDIAC CATHETERIZATION INJECTION CERVICAL OR THORACIC EPIDURAL BLOCK WITH STEROIDS: right C34 nerve root inj Right 07/29/2019 Performed by Rolando Rajan MD at [facility] INJECTION SPINE TRANSFORAMINAL: right C 3,4 nroot Right 02/17/2023 Performed by Rolando Rajan MD at [facility] INJECTION SPINE TRANSFORAMINAL: right C 3,4 nroot Right 01/13/2023 Performed by Rolando Rajan MD at [facility] INJECTION STEROID EPI 2 WITH SEDATION: right [id number] Right 01/31/2020 Performed by Rolando Rajan MD at [facility] INJECTION STEROID EPI 2 WITH SEDATION: right [id number] Right 09/06/2019 Performed by Rolando Rajan MD at [facility] TYMPANOSTOMY TUBE PLACEMENT Bilateral as a child VASECTOMY Bilateral 2004 Current Outpatient Medications on File Prior to Visit Medication Sig Dispense Refill albuterol (PROVENTIL HFA;VENTOLIN HFA) 90 mcg/actuation inhaler Inhale 2 puffs every 4 (four) hoursas needed for wheezing. 1 Inhaler 0 ALPRAZolam (XANAX) 0.25 mg tablet TAKE 1/2 (ONE-HALF) TO 1 (ONE) TABLET BY MOUTH THREE TIMES DAILY FOR 7 DAYS benzonatate (TESSALON) 100 mg capsule Take 1 capsule (100 mg total) by mouth every 8 (eight) hours.21 capsule 0 citalopram (CeleXA) 40 mg tablet Take 1 tablet (40 mg total) by mouth in the morning. diclofenac (VOLTAREN) 75 mg EC tablet Take 1 tablet (75 mg total) by mouth in the morning and 1 tablet (75 mg total) before bedtime. empagliflozin (JARDIANCE) 10 mg tablet tablet 1/2 tablet Orally Once a day for 90 days GABAPENTIN ORAL Take 600 mg by mouth 3 (three) times a day. Two at night (1200 mg) and one in the morning (600 mg) lamoTRIgine (LaMICtal) 100 mg tablet Take 1 tablet (100 mg total) by mouth in the morning. levothyroxine (SYNTHROID, LEVOTHROID) 50 MCG tablet Take 1 tablet (50 mcg total) by mouth in the morning. nabumetone (RELAFEN) 500 mg tablet Take 2 tablets (1,000 mg total) by mouth in the morning and 2 tablets (1,000 mg total) before bedtime. ondansetron (ZOFRAN) 4 mg tablet Take 1 tablet (4 mg total) by mouth daily as needed. pantoprazole (PROTONIX) 40 mg EC tablet Take 1 tablet (40 mg total) by mouth every morning before breakfast. pramipexole (MIRAPEX) 0.5 mg tablet Take 1 tablet (0.5 mg total) by mouth in the morning. rizatriptan (MAXALT) 10 mg tablet Take 1 tablet (10 mg total) by mouth once as needed. May repeat in 2 hours if unresolved. Do not exceed 30 mg in 24 hours. tiZANidine (ZANAFLEX) 1 MG tablet Take 4 split tablet (4 mg total) by mouth 3 (three) times a day as needed. No current facility-administered medications on file prior to visit. No Known Allergies Social History Socioeconomic History Marital status: Spouse name: Not on file Number of children: Not on file Years of education: Not on file Highest education level: Not on file Occupational History Not on file Tobacco Use Smoking status: Never Smokeless tobacco: Never Vaping Use Vaping Use: Never used Substance and Sexual Activity Alcohol use: Yes Drug use: Never Sexual activity: Defer Other Topics Concern Not on file Social History Narrative Not on file Social Determinants of Health Financial Resource Strain: Not on file Food Insecurity: No Food Insecurity (04/20/2023) Hunger Screening Food Insecurity - Worry: Never True Food Insecurity - Inability: Never True Transportation Needs: Not on file Physical Activity: Not on file Stress: Not on file Social Connections: Not on file Interpersonal Safety: Not on file Housing Instability: Not on file Exam BP 119/74 Pulse 56 Ht 177.8 cm (5' 10 ) Wt 93 kg (205 lb) BMI 29.41 kg/m Mood/affect normal NC/AT Reasonably groomed and attired Neurological: Awake, alert, oriented x 3 CN intact Speech intact Cognition intact Motor No focal motor defecit - 4/5 strength in his right manager convention, biceps triceps and deltoid are intact Sensory intact - except for decreased in the right thumb and forearm along the thumb side to light touch Gait intact Station normal Coordination intact Reflexes - not pathologic Review of films: I personally reviewed and interpreted the patient's imaging during the clinic visit His MRI of the C-spine for about a month ago There is disc herniation and or bone spur at C5-6 on the right side compressing the right C6 nerve,the seems to be concordant with the area of his pain and numbness and weakness A/P: 42-year-old male with cervical spondylosis, disc herniation and right-sided C5-6 nerve root compression with concordant symptoms He has not been to physical therapy saw give him a prescription for that He started a new job only about 4 5 months ago and is unsure if he could have time off yet or not He has had injections but mostly at C3-4, he may try 1 at C5-6 I did talk with him about surgical options these would include posterior cervical diskectomy, anterior surgery for either arthroplasty or ACDF He will think about the options that I discussed with him If he does not get adequate relief from injections or potentially considering therapy then I think he would be a good candidate for surgical intervention I am happy to see him back any time I did review some of the risks and benefits of both anterior versus posterior surgery he voiced understanding JARAD IQBAL MD documented in this encounterSt. [facility]02-[facility]24 Instructions* Patient Instructions* Jarad Iqbal MD - 04/20/2023 10:30 AM EST PT Possibly C5-6 injection Consider surgery in the future if not getting better Follow-up p.r.n. JARAD IQBAL MD documented in this encounterSt. Francis Hospital01-23-2024 History of Present illness Narrative* AGUSTIN Allison - 03/21/2023 10:45 AM EST [facility] [address] [place] [address] Patient: John Rosas III Sex: male : 1980 Age: 42 y.o. PCP: ALFREDO JOHANSEN MD 03/21/2023 John Rosas III is here for a(n) post procedure follow up 02/17/2023 Right C3/4 Nerve Root Injection with 90% relief x 1 week. Currently 75% relief . Chief Complaint Patient presents with Neck Pain HPI: NRIs with significant relief reported (07/29/2019, 09/06/2019, 01/31/2020) 01/13/2023 right C 3,4 nerve root injection with 75% relief 02/17/2023 Right C3/4 Nerve Root Injection with 90% relief x 1 week. Currently 75% relief still Neck Pain This is a new problem. The current episode started more than 1 year ago (2019 onset flared 11/2022). The problem occurs constantly. The problem has been unchanged. The pain is associated with nothing. The pain is present in the midline and right side (middle base of neck). Quality: Pain to right shoulder, numbness to right forearm. The pain is at a severity of 2/10. The pain is moderate. The symptoms are aggravated by position (movement of neck (nodding, shaking head)). The pain is Same all thetime. Stiffness is present At night. Associated symptoms include headaches (daily), numbness (righthand), tingling (right hand) and weakness (right arm). Pertinent negatives include no chest pain (anxiety and stress recently), fever, pain with swallowing, photophobia or visual change. Associated symptoms comments: Pt still feels like he has no hand grasp on right side. Difficult to hold on to things. He has tried acetaminophen, NSAIDs, ice, heat, home exercises, chiropractic manipulation and neck support (Nsaids x2 (motrin, Toradol, diflocenac), Tyl, Zanaflex ice/heat, neck brace.) for the symptoms. The treatment provided significant relief. The effect of pain on patient's ADLS: Moderate Impairment. Past Medical History: Diagnosis Date Anxiety Anxiety Back pain Bipolar affective (CMS-HCC) 2007? schizophrenia Chronic pain neck Chronic pain disorder Colitis Depression Fatty liver Migraines Neck pain Past Surgical History: Procedure Laterality Date CARDIAC CATHETERIZATION INJECTION CERVICAL OR THORACIC EPIDURAL BLOCK WITH STEROIDS: right C34 nerve root inj Right 07/29/2019 Performed by Rolando Rajan MD at [facility] IN[facility] SPINE TRANSFORAMINAL: right C 3,4 nroot Right 02/17/2023 Performed by Rolando Rajan MD at [facility] SPINE TRANSFORAMINAL: right C 3,4 nroot Right 01/13/2023 Performed by Rolando Rajan MD at [facility] INJECTION STEROID EPI 2 WITH SEDATION: right [id number] Right 01/31/2020 Performed by oRlando Rajan MD at [facility] INJECTION STEROID EPI 2 WITH SEDATION: right [id number] Right 09/06/2019 Performed by Rolando Rajan MD at [facility] TYMPANOSTOMY TUBE PLACEMENT Bilateral as a child VASECTOMY Bilateral 2004 No Known Allergies Family History Problem Relation Age of Onset Anesthesia problems Mother mother had a siezure with ansthesia Social History Socioeconomic History Marital status: Spouse name: Not on file Number of children: Not on file Years of education: Not on file Highest education level: Not on file Occupational History Not on file Tobacco Use Smoking status: Never Smokeless tobacco: Never Vaping Use Vaping Use: Never used Substance and Sexual Activity Alcohol use: Yes Drug use: Never Sexual activity: Defer Other Topics Concern Not on file Social History Narrative Not on file Social Determinants of Health Financial Resource Strain: Not on file Food Insecurity: No Food Insecurity (03/21/2023) Hunger Screening Food Insecurity - Worry: Never True Food Insecurity - Inability: Never True Transportation Needs: Not on file Physical Activity: Not on file Stress: Not on file Social Connections: Not on file Interpersonal Safety: Not on file Housing Instability: Not on file Review of Systems Constitutional: Negative. Negative for fever. HENT: Negative. Eyes: Negative for photophobia. Respiratory: Negative. Cardiovascular: Negative for chest pain (anxiety and stress recently). Gastrointestinal: Negative. Genitourinary: Negative. Musculoskeletal: Positive for neck pain. Skin: Negative. Neurological: Positive for tingling (right hand), weakness (right arm), numbness (right hand) and headaches (daily). Vital Signs: BP 120/68 (BP Site: Right Arm, BP Postition: Sitting) Pulse 55 Resp 18 Ht 177.8 cm (5' 10 ) Wt 90.7 kg (200 lb) SpO2 100% BMI 28.70 kg/m Physical Exam: GENERAL - Healthy patient that appears stated age. HEENT - Normocephalic / Atraumatic, Extraoccular movements intact, trachea midline, thyroid within normal limits. CV - pulse regular, Warm extremities with appropriate color of nailbeds. RESP - No obvious wheezing, No Shortness of Breath, No overexertion response to exam maneuvers. COORDINATION - remains intact. PSYCH - Alert and Oriented x4, Attentive and appropriate, constitutionally normal, displays normal mood and affect per situation, answered questions appropriately during examination, demonstrated appropriate attention during discussion, demonstrated appropriate cognitive reasoning and understandingof the medical condition by asking appropriate questions regarding the diagnosis and risks/benefits/alternatives of treatment modalities. No obvious deficits in memory, reasoning, or intellect. Cervical: SKIN - No rashes or bruising in the area of the patient s pain. LYMPH NODES - demonstrate no obvious enlargement. EXTREMITIES - Upper extremities are warm, with minimal edema and palpable pulses. Tenderness to palpation noted in the cervical spine and paraspinal musculature. Pain is elicited with flexion, extension, and lateral rotation of the cervical spine. Range of motion is diminished with these motions due to pain. Facet palpation is noted to be painful and concordant with the patient s normal pain complaints. STRENGTH - noted to be 5 out of 5 all muscle groups bilateral upper extremities including muscles involving shoulder flexion and abduction, elbow flexion and extension, as well as wrist flexion and extension and intrinsic muscles of the hand. No notable atrophy, fasciculations or spasm. SENSORY - No notable sensory deficits in the bilateral upper extremities to touch or pinprick in all dermatomal distributions. Spurlings sign is negative. Assessment/Treatment Plan: John was seen today for neck pain. Diagnoses and all orders for this visit: Cervical spondylosis without myelopathy Monitor Follow up 2-3 months The medications I have prescribed have been reviewed for medication interactions/contraindications and/or for upcoming procedures: continue current medication regimen without any changes. DISCUSSION: Treatment options discussed with patient and all questions answered to patient's satisfaction. Discussed the rules and regulations surrounding prescription of opioids and compliance at length. Failure to follow the rules and regulation will result in tapering and discontinuation of medications if applicable. Prescribed medication that requires intensive monitoring for toxicity We do not currently prescribeany controlled substance from this practice. Treatment plans discussed but not opted for at this time: Bilateral Upper extremity EMG. Pain is under adequate control. It does appear that the patient benefited from the previous injection and the benefit has continuedthrough this visit. At this time, we will monitor the patient s symptoms from an interventional standpoint and consider another injection in the future if the patient s symptoms return or intensify severely. The patient was made aware that they should call if symptoms worsen or if their pain beginsto have a negative impact on their quality of life and activities of daily living again. The spine model was demonstrated and MRI was reviewed and used to explain the condition. OARRS: Reviewed. Scribe Statement: Scribed for and in the presence of AGUSTIN ALLISON by Halina Lantigua CNA. Provider Statement: I, AGUSTIN ALLISON, personally performed the services described in the documentation, as scribed by Halina Lantigua CNA in my presence, and it is both accurate and complete. Halina Lantigua CNA 03/21/23 1208 AGUSTIN Allison 03/21/23 1402 documented in this encounterSt. [facility] Hospital11-12-2022 Note* ED Bed Hold Note - Nicki Eden RN - 01/08/2022 9:22 AM EST Bed: ED-03 Expected date: Expected time: Means of arrival: Comments: Rajiv [id number] Miscellaneous Notes* ED Bed Hold Note - Nicki Eden RN - 01/08/2022 9:22 AM EST Bed: ED-03 Expected date: Expected time: Means of arrival: Comments: Rajiv documented in this encounterTitusville Area [id number] History of Present illness Narrative* Joleen Polanco RN - 01/08/2022 8:13 AM EST Patient presents to the ED c/o a bad hangover. Patient came in from out of town to hangout with oldfriends. They were all drinking and patient states, I knew I should have stopped after a few glasses of wine. stated he has fatty liver disease, he drank one beer before the libertarian and then had5 glasses of wine when there. Patient c/o headache, diarrhea, vomiting. documented in this encounterTrinity HealthEvaluation note* Diagnosis Nausea and vomiting, unspecified vomiting type- Primary Diarrhea, unspecified type documented in this encounter [facility]Eval[facility]ristianac[facility] note* Diagnosis Cervical spondylosis without myelopathy- Primary documented in this encounter [facility]* Diagnosis Herniated cervical disc- Primary Displacement of cervical intervertebral disc without myelopathy Cervical spondylosis Cervical spondylosis without myelopathy Cervical radiculopathy Brachial neuritis or radiculitis nos documented in this encounter [facility]* Diagnosis Cervical disc displacement- Primary Displacement of cervical intervertebral disc without myelopathy Paresthesias Disturbance of skin sensation Right hand weakness Muscle weakness (generalized) documented in this encounter [facility]* Diagnosis Intervertebral disc stenosis of neural canal of cervical region- Primary Intervertebral disc stenosis of neural canal of cervical region- Primary Intervertebral disc stenosis of neural canal of cervical region documented in this encounter [facility]* Diagnosis Intervertebral disc stenosis of neural canal of cervical region- Primary documented in this encounter [facility]* Attachments The following attachments cannot be sent through Care Everywhere. * Diarrhea (Ukrainian) * Nausea and Vomiting (Ukrainian) documented in this encounterTitusville Area HospitalInstructionsNot on filedocumented in this encounterProMarion Hospital SystemInstructionsNot on filedocumented in this encounterProMercy Hospital Summary Purpose Family History No Family History Records FoundNo Family History Records FoundNo Family History Records FoundNo Family History Records Found Advance Directives No Advanced Directives Records FoundHealthcare Agents on File NameRelationshipHealthcare Agent RelationshipCommunicationJuliana Knox Community Hospitalouse Health Care Agent* * Marah ChampagneughterFirst Alternate Health Care Agent* NameRelationshipHealthcare Agent RelationshipCommunicationJuliana PierceSpouse Health Care Agent* * Marah ChampagneughterFirst Alternate Health Care Agent* NameRelationshipHealthcare Agent RelationshipCommunicationJuliana Knox Community Hospitalouse Health Care Agent* * Marah PierceDaughterFirst Alternate Health Care Agent* NameRelationshipHealthcare Agent RelationshipCommunicationJuliana PierceSpouse Health Care Agent* * Marah PierceDaughterFirst Alternate Health Care Agent* NameRelationshipHealthcare Agent RelationshipCommunicationJuliana PierceSpouse Health Care Agent* * Marah PierceDaughterFirst Alternate Health Care Agent* NameRelationshipHealthcare Agent RelationshipCommunicationJuliana PierceSpouse Health Care Agent* * Marah PierceDaughterFirst Alternate Health Care Agent* Reason for Referral SpecialtyDiagnoses / ProceduresReferred By ContactReferred To Contact Rehabilitation Diagnoses Herniated cervical disc Cervical radiculopathy Jarad Iqbal MD [address] [place] [address] Referral IDStatusReasonStart DateExpiration DateVisits RequestedVisits [id number] Review Specialty Services Required /[id number] / ProceduresReferred By ContactReferred To Contact Diagnoses Paresthesias Right hand weakness Procedures EMG With NCV Briana Cheatham, PA [address] [facility], [address] [place] [address] Referral IDStatusReasonStart DateExpiration DateVisits RequestedVisits [id number] Review/ Additional Source Comments Reason for Visit (unrecogniz ed section and content) ReasonCommentsHangoverReasonCommentsNeck PainReasonCommentsConsultNew patient cervical films pushed to [facility] not w/cReasonCommentsNeck Pain Scheduled Active and Recently Administ ered Medications (unrecognized section and content) Medication Order//01/2022 ketorolac (TORADOL) injection 15 mg (COMPLETED) 15 mg, intravenous, Once, On 01/08/22 at 0942, For 1 dose * 0955 (Given - Provider: Chela Wright, DEYA) ondansetron (PF) (ZOFRAN) injection 4 mg (COMPLETED) 4 mg, intravenous, Once, On 01/08/22 at 0931, For 1 dose * 0955 (Given - Provider: Chela Wright, DEYA) sodium chloride 0.9 % bolus 1,000 mL (COMPLETED) 1,000 mL, intravenous, at 1,000 mL/hr, Administer over 1 Hours, Once, On 01/08/22 at 0931, For 1 dose * 0954 (New Bag - Provider: Chela Wright, DEYA) * 1030 (Stopped - Provider: Chela Wright, DEYA) Care Teams (unrecognized sec tion and content) Team MemberRelationshipSpecialtyStart DateEnd Date Physician, No Pcp PCP - Lnrlemu49/12/22Team MemberRelationshipSpecialtyStart DateEnd Alfredo Johansen MD [address] [place] [address] PCP - GeneralFamily Medicine11/02/18Team MemberRelationshipSpecialtyStart DateEnd Alfredo Johansen MD [address] [place] [address] PCP - GeneralFamily Medicine11/02/18Team MemberRelationshipSpecialtyStart DateEnd Date Alfredo Johansen MD [address] [place] [address] PCP - GeneralFamily Medicine11/02/18Team MemberRelationshipSpecialtyStart DateEnd Date Alfredo Johansen MD PCP - [facility] Medicine11/02/18Te MemberRelationshipSpecialtyStart DateEnd Date Alfredo Johansen MD PCP - [facility]11/02/18Te MemberRelationshipSpecialtyStart DateEnd Date Alfredo Johansen MD PCP - [facility]11/02/18 (unrecognized sect ion and content) No Status Records FoundNo Status Records FoundNo Status Records FoundNo Status Records Found INFORMATION SOURCE (unrecogn ized section and content) DATE CREATED AUTHOR 01/08/2022 [facility] DATE CREATED AUTHOR AUTHOR'S ORGANIZ ATION 07/01/2022 [facility] DATE CREATED AUTHOR AUTHOR'S ORGANIZ ATION 04/28/2023 [facility] DATE CREATED AUTHOR AUTHOR'S ORGANIZ ATION 01/04/2025 [facility] FOR RECORDS PERTAINING TO PATIENTS WHO ARE [...] BE BASED ON THE PRIMARY CLINICAL RECORDS. [employer] [facility]. provides no warranty or guarantee of the accuracy or completeness of information in this document.
--- NOTE | 2025-02-06 14:55 | XR_ITS ---
[facility] [place] [id number] Patient Name: DORIS VANCE MRN: [id number] date: 1980 Sex: M Assigned Patient Location: RAD Current Patient Location: [facility] Accession/Order Number: [id number] Exam Date: 02/06/2025 15:00 Report Date: 02/06/2025 21:12 At the request of: ALFREDO RODRIGUEZ MD Procedure: XR hip BI w PEL 1V 2 views both hips a single view pelvis HISTORY: Bilateral hip pain. No injury. Adequate bony alignment without acute displaced fracture or significant degeneration. XR/XR hip BI w PEL 1V IMPRESSION: Unremarkable exam. Impression dictated by: Jaime Mederos M.D. 02/06/2025 9:12 PM Dictation Location: [place] [address] Electronically authenticated by: [id number] Y Date: 02/06/2025 21:12
== END 2025-02-06 14:34 | disposition home or self-care (01) ==
LOC: RAD 14:38
PROVIDERS: PCP Family Medicine; Visit Provider Family Medicine
DX: M25.551 Pain in right hip (principal); M25.552 Pain in left hip
CPT/HCPCS: 73523